=== PATIENT | male | born 1965 | race Caucasian/White ===

== ENCOUNTER 2024-10-28 18:26 | Inpatient (IN) | payer OTHER, SELFPAY ==
[2024-10-28] VITALS (26 sets, daily range): BP systolic 95–137; BP diastolic 58–95; PULSE 80; BMI 26.1; BMI 27.0
--- NOTE | 2024-10-28 14:29 | ED.GENMED ---
ED Provider Triage
<Bola Segovia PA-C - Last Filed: 10/28/24 14:31>
-
Patient seen by provider in Triage?: Seen in Triage
Attestation: A medical screening examination has been initiated by a qualified medical provider. Based on the assessment performed at this time, it has been determined that an emergent medical condition may exist and the patient has been informed
that further medical evaluation and possible additional diagnostic testing may be needed.
HPI: 59-year-old male presenting the emergency department for evaluation of inability to tolerate p.o. both solids and liquids, diarrhea and generally feeling unwell, generalized weakness. Patient is quite ill-appearing, having a difficult time
holding his head up, rapidly breathing and smells ketotic. Bedside glucose ordered with a reading of 'high'. Patient brought back immediately to the ER for further evaluation. Medical concern for DKA or other diabetic complication
GENERAL: Alert , unkempt, rapid breathing, difficult time speaking full sentences
EYE: No visual abnormalities.
NECK: Trachea midline
ENT: No visible abnormalities.
LUNGS: Tachypneic
NEUROLOGICAL: Alert and oriented
SKIN: Skin intact. No visible changes.
MUSCULOSKELETAL: Moving extremities normally
PSYCH: Normal and appropriate interaction.
This is a medical evaluation conducted in person to initiate diagnostic evaluation and provide initial therapeutics. Please see further documentation by the treating clinician.
History of Present Illness
<Bola Segovia PA-C - Last Filed: 10/28/24 14:31>
General
Chief Complaint: Blood Sugar Problem
Time Seen by Provider: 10/28/24 14:38
<Kiara Hoskins PA-C - Last Filed: 10/28/24 17:44>
General
Source: patient and family
Exam Limitations: none
History of Present Illness
History of Present Illness:
59yoM with a history of type 2 diabetes presenting with his son for evaluation of vomiting. Patient ran out of his medications about a month ago. He takes Januvia and glimepiride for type 2 diabetes. He has been having decreased appetite over the
past week and started vomiting 3 days ago. He is drinking fluids but is unable to keep any solids down. He also has had multiple falls over the past week. He started to become increasingly weak and fatigued since yesterday. Son states he refused
to come to the hospital until today. Patient is currently being worked up for MS by neurology in the outpatient setting. He has lost over 100 pounds in the past year unintentionally.
Past History
<Bola Segovia PA-C - Last Filed: 10/28/24 14:31>
Past History
ED Past Medical History: NIDDM
ED Past Surgical History: Other (Recent hernia surgery)
Social History
Tobacco: Non-smoker
Alcohol: Occasional
Drug: None
Personal:
Living: with family
Employment: Employed
Family History
Family History: Other (Noncontributory)
Phy Exam
<Kiara Hoskins PA-C - Last Filed: 10/28/24 17:44>
General Physical Exam
General Presentation: severe distress
General Skin: warm and dry
General Mental: alert
General Hydration: dry mucous membranes
ENT Exam
ENT Exam: normocephalic
Cardiovascular Exam
Cardiovascular Exam: tachycardia
Pulmonary Exam
Pulmonary Exam: lungs clear, no rales, no crackles, no rhonchi, no wheezing and other (Kussmaul respirations noted with RR in the 30-40 range. Lungs CTA and oxygen saturation 100%)
Gastrointestinal Exam
Gastrointestinal Exam: non tender, soft and non distended
Neurological Exam
Neurological Exam: alert and other (Someone confused during exam but awake and alert. RLE weakness noted )
Skin Exam
Skin Exam: normal color and warm/dry
Course
<Bola Segovia PA-C - Last Filed: 10/28/24 14:31>
Orders/Labs/Results
Orders:
Orders
10/28/24 14:45
Cardiac Monitoring- Treatment ONCE
0.9% Sodium Chloride 1000 ml [Nss] 2,000 ml IV BOLUS
10/28/24 14:46
Electrocardiogram (*1) Urgent
Reason for Study: Shortness of Breath
CT Cervical Spine W/o Iv Contr Urgent
Comment:
Reason For Exam: multiple falls
CT Head W/o Iv Contrast Urgent
Comment:
Reason For Exam: multiple falls
EKG- Treatment ONCE
10/28/24 14:50
B-Hydroxybutyrate Urgent
Complete Blood Count/With Diff Urgent
Comprehensive Metabolic Panel Urgent
Glycohemoglobin (HgbA1c) Urgent
Lactate Level [Lactic Acid] Urgent
Lipase Urgent
Magnesium Urgent
Troponin I Urgent
Venous Blood Gas Urgent
%Oxygen/Room Air: room air
10/28/24 14:58
Add On- LAB Urgent
Tests Added?: A1c
10/28/24 15:30
Normosol (Mult Electrolytes) [Normosol-R/Plasmalyte-A] 1,000 ml IV 1,000 mls/hr
10/28/24 15:41
Bedside Glucose- Treatment Q1H
IV Insert/Care/Rem.- Treatment PRN
10/28/24 15:43
Urinalysis Reflex To Culture Urgent
Date Specimen was Collected: 10/28/24
Time Specimen was Collected: 15:41
Urine Microscopic Reflex Cult Urgent
Blood Culture Q30M
RAYA Source: Blood/Venous
Specimen Description:
Blood Culture Q30M
RAYA Source: Blood/Venous
Specimen Description:
10/28/24 15:44
Reg Insulin 100 Units/100 ml [Novolin R Insulin Infusion] 100 units in 100 ml IV NOW
10/28/24 15:45
Basic Metabolic Panel Q2H
10/28/24 17:00
KCl 20 Meq/0.9%Sodchl 1000 ml [NSS with KCL 20 MEQ] 20 meq in 1,000 ml IV 250 mls/hr
10/28/24 17:45
Basic Metabolic Panel Q2H
10/28/24 19:45
Basic Metabolic Panel Q2H
Abnormal Lab Results
10/28/24 10/28/24 10/28/24
14:29 14:50 15:43
WBC 17.3 H 10^3/uL
(4.8-10.8)
MCH 31.5 H pg
(27.0-31.0)
Abs Immat Gran (auto) 0.3 H 10^3/uL
(0-0.05)
Absolute Neuts (auto) 14.2 H 10^3/uL
(1.4-6.5)
Absolute Monos (auto) 1.2 H 10^3/uL
(0.1-0.6)
Immature Gran % 1.4 H %
(0-0.5)
Neutrophils % 82.0 H %
(42.2-75.2)
Lymphocytes % 9.6 L %
(20.5-51.1)
VBG pH 6.98 L*
(7.32-7.43)
VBG pCO2 16 L mmHg
(35-48)
VBG pO2 61 H mmHg
(30-50)
VBG HCO3 3.8 L mmol/L
(22-27)
Sodium 132 L mmol/L
(135-145)
Chloride 94 L mmol/L
(98-107)
Carbon Dioxide < 5 L* mmol/L
(22-30)
BUN 41 H mg/dl
(9-20)
Creatinine 1.8 H mg/dL
(0.7-1.3)
Glucose 615 H* mg/dl
(70-99)
Lactic Acid 4.3 H* mmol/L
(0.7-2.0)
Urine Ketones 3+ A
(Negative)
Urine Bacteria (Reflex) Few A
(Negative)
Urine Glucose 4+ A
(Negative)
Urine Albumin (Reflex) 2+ A
(Neg - Trace)
B-Hydroxybutyrate 10.2 H mmol/L
(0.02-0.27)
POC Glucose 535 H* mg/dl
(70-99)
10/28/24
16:15
WBC
MCH
Abs Immat Gran (auto)
Absolute Neuts (auto)
Absolute Monos (auto)
Immature Gran %
Neutrophils %
Lymphocytes %
VBG pH
VBG pCO2
VBG pO2
VBG HCO3
Sodium
Chloride
Carbon Dioxide
BUN
Creatinine
Glucose
Lactic Acid
Urine Ketones
Urine Bacteria (Reflex)
Urine Glucose
Urine Albumin (Reflex)
B-Hydroxybutyrate
POC Glucose 579 H* mg/dl
(70-99)
10/28/24 14:50
Vital Signs
Initial and Last Documented VS:
Initial Vital Signs
Temp Pulse Resp BP Pulse Ox
97.8 F 112 18 103/58 97
10/28/24 14:31 10/28/24 14:31 10/28/24 14:31 10/28/24 14:31 10/28/24 14:31
Last Documented Vital Signs
Temp Pulse Resp BP Pulse Ox
97.8 F 103 30 129/76 99
10/28/24 14:31 10/28/24 16:45 10/28/24 16:45 10/28/24 16:45 10/28/24 16:45
Morganlt;Kiara Hoskins PA-C - Last Filed: 10/28/24 17:44>
Orders/Labs/Results
Orders:
Orders
10/28/24 14:45
Cardiac Monitoring- Treatment ONCE
0.9% Sodium Chloride 1000 ml [Nss] 2,000 ml IV BOLUS
10/28/24 14:46
Electrocardiogram (*1) Urgent
Reason for Study: Shortness of Breath
CT Cervical Spine W/o Iv Contr Urgent
Comment:
Reason For Exam: multiple falls
CT Head W/o Iv Contrast Urgent
Comment:
Reason For Exam: multiple falls
EKG- Treatment ONCE
10/28/24 14:50
B-Hydroxybutyrate Urgent
Complete Blood Count/With Diff Urgent
Comprehensive Metabolic Panel Urgent
Glycohemoglobin (HgbA1c) Urgent
Lactate Level [Lactic Acid] Urgent
Lipase Urgent
Magnesium Urgent
Troponin I Urgent
Venous Blood Gas Urgent
%Oxygen/Room Air: room air
10/28/24 14:58
Add On- LAB Urgent
Tests Added?: A1c
10/28/24 15:30
Normosol (Mult Electrolytes) [Normosol-R/Plasmalyte-A] 1,000 ml IV 1,000 mls/hr
10/28/24 15:41
Bedside Glucose- Treatment Q1H
IV Insert/Care/Rem.- Treatment PRN
10/28/24 15:43
Urinalysis Reflex To Culture Urgent
Date Specimen was Collected: 10/28/24
Time Specimen was Collected: 15:41
Urine Microscopic Reflex Cult Urgent
Blood Culture Q30M
RAYA Source: Blood/Venous
Specimen Description:
Blood Culture Q30M
RAYA Source: Blood/Venous
Specimen Description:
10/28/24 15:44
Reg Insulin 100 Units/100 ml [Novolin R Insulin Infusion] 100 units in 100 ml IV NOW
10/28/24 15:45
Basic Metabolic Panel Q2H
10/28/24 17:00
KCl 20 Meq/0.9%Sodchl 1000 ml [NSS with KCL 20 MEQ] 20 meq in 1,000 ml IV 250 mls/hr
10/28/24 17:45
Basic Metabolic Panel Q2H
10/28/24 19:45
Basic Metabolic Panel Q2H
Abnormal Lab Results
10/28/24 10/28/24 10/28/24
14: 14:50 15:43
WBC 17.3 H 10^3/uL
(4.8-10.8)
MCH 31.5 H pg
(27.0-31.0)
Abs Immat Gran (auto) 0.3 H 10^3/uL
(0-0.05)
Absolute Neuts (auto) 14.2 H 10^3/uL
(1.4-6.5)
Absolute Monos (auto) 1.2 H 10^3/uL
(0.1-0.6)
Immature Gran % 1.4 H %
(0-0.5)
Neutrophils % 82.0 H %
(42.2-75.2)
Lymphocytes % 9.6 L %
(20.5-51.1)
VBG pH 6.98 L*
(7.32-7.43)
VBG pCO2 16 L mmHg
(35-48)
VBG pO2 61 H mmHg
(30-50)
VBG HCO3 3.8 L mmol/L
(22-27)
Sodium 132 L mmol/L
(135-145)
Chloride 94 L mmol/L
(98-107)
Carbon Dioxide < 5 L* mmol/L
(22-30)
BUN 41 H mg/dl
(9-20)
Creatinine 1.8 H mg/dL
(0.7-1.3)
Glucose 615 H* mg/dl
(70-99)
Lactic Acid 4.3 H* mmol/L
(0.7-2.0)
Urine Ketones 3+ A
(Negative)
Urine Bacteria (Reflex) Few A
(Negative)
Urine Glucose 4+ A
(Negative)
Urine Albumin (Reflex) 2+ A
(Neg - Trace)
B-Hydroxybutyrate 10.2 H mmol/L
(0.02-0.27)
POC Glucose 535 H* mg/dl
(70-99)
10/28/24
16:15
WBC
MCH
Abs Immat Gran (auto)
Absolute Neuts (auto)
Absolute Monos (auto)
Immature Gran %
Neutrophils %
Lymphocytes %
VBG pH
VBG pCO2
VBG pO2
VBG HCO3
Sodium
Chloride
Carbon Dioxide
BUN
Creatinine
Glucose
Lactic Acid
Urine Ketones
Urine Bacteria (Reflex)
Urine Glucose
Urine Albumin (Reflex)
B-Hydroxybutyrate
POC Glucose 579 H* mg/dl
(70-99)
10/28/24 14:50
Vital Signs
Initial and Last Documented VS:
Initial Vital Signs
Temp Pulse Resp BP Pulse Ox
97.8 F 112 18 103/58 97
10/28/24 14:31 10/28/24 14:31 10/28/24 14:31 10/28/24 14:31 10/28/24 14:31
Last Documented Vital Signs
Temp Pulse Resp BP Pulse Ox
97.8 F 103 30 129/76 99
10/28/24 14:31 10/28/24 16:45 10/28/24 16:45 10/28/24 16:45 10/28/24 16:45
<Kiara Hoskins PA-C - Last Filed: 10/28/24 17:44>
MDM/Problems Addressed
Differential Diagnosis Includes:
59yoM here with decreased appetite x1 week and vomiting x3 days. Hx of T2DM. Ran out of medications 1 month ago. Fingerstick glucose 535 in triage. He is acutely ill on initial exam with Kussmaul respirations and dry mucous membranes. Differential
diagnosis includes but is not limited to: DKA, HHS, dehydration, ED
Initial ED plan: Check abdominal labs, VBG, beta hydroxybutyrate, lactate, troponin/EKG, UA, and CT head/cervical spine given multiple falls. 2L IV NS ordered.
<Kiara Hoskins PA-C - Last Filed: 10/28/24 17:44>
*EKG
Interpreted by ED Provider?: Yes
EKG Intrepretation Date: 10/28/24
Heart Rate: 110
Rate: tachycardiac
Rhythm: sinus
[place]: left axis deviation
QRS Pattern: normal QRS
Ischemia: other (nonspecific T wave flattening)
*Critical Care Note
Total Time (30-74mins, 75-104mins- exclusive of procedures): 45
<Kiara Hoskins PA-C - Last Filed: 10/28/24 17:44>
Update Note
Update Note:
Labs consistent with severe DKA. Venous pH 6.98, base deficit -26, and bicarb <5. Serum and urine ketones positive. WBC 17 and lactate 4.3. SIRS criteria likely 2/2 DKA/hypovolemia. He denies any fevers or infectious symptoms although blood cultures
added for completeness. Additional fluid bolus and insulin gtt ordered. Patient admitted for further management.
ED Attending Note
<Bola Segovia PA-C - Last Filed: 10/28/24 14:31>
-
Portions of this chart may have been created with voice recognition software.� Occasional wrong word or��sound alike� substitutions may have occurred due to the inherent limitations of voice recognition software.
Discharge Plan
Departure
Patient Disposition: Admit
Date of Disposition: 10/28/24
Time of Disposition: 16:13
Presentation/result/management discussed w/ accepting MD/DO: Hospitalist
Discharge Problem:
Diabetic ketoacidosis
Prescriptions:
No Action
Theragen Tablet
1 tab PO DAILY
glimepiride 2 mg Tablet
2 mg PO BID
Januvia 50 mg Tablet
100 mg PO DAILY
Patient Comments:
does not know dose
Medical Marijuana
2 gummy PO DAILYPRN PRN (Reason: shakes)
Referrals:
Edy Grimaldo DO [Family Provider] -
Interventions
Interventions:
*Risk Screen - Suicide Last Done: 10/28/24 14:31
*General Assessment Last Done: 10/28/24 14:31
*Neglect/Abuse Screening Last Done: 10/28/24 14:31
ED- Fall Risk Assessment Last Done: 10/28/24 15:07
*ED COVID-19 Vaccine History Last Done: 10/28/24 15:07
ED- Neurological Assessment Last Done: 10/28/24 15:07
Discharge Date and Time
Print Language: CITIZEN OF [place]
[2024-10-28 14:30] LABS: Glucose - Point of Care 535 mg/dl (70-99)
[2024-10-28] MEDS: NSS 2000 IV (14:51)
[2024-10-28 15:15] LABS: Venous Blood Gas B.E. -26.2 mmol/L (-4 to +4); Venous Blood Gas HCO3 3.8 mmol/L (22-27); Venous Blood Gas pCO2 16 mmHg (35-48); Venous Blood Gas pO2 61 mmHg (30-50)
[2024-10-28 15:16] LABS: % Basophils 0.2 % (0-2); % Immature Granulocytes 1.4 % (0-0.5); % Lymphocytes 9.6 % (20.5-51.1); % Monocytes 6.8 % (1.7-9.3); Absolute Immature Granulocytes 0.3 10^3/uL (0-0.05); Absolute Lymphocytes 1.7 10^3/uL (1.2-3.4); Absolute Monocytes 1.2 10^3/uL (0.1-0.6); Absolute Neutrophils 14.2 10^3/uL (1.4-6.5); Hematocrit 51.5 % (39.0-52.0); Hemoglobin 17.6 g/dL (13.0-18.0); Mean Corp Hgb Conc. 34.2 g/dL (33.0-37.0); Mean Corpuscular Hgb 31.5 pg (27.0-31.0); Mean Corpuscular Volume 92.3 fL (80.0-94.0); Mean Platelet Volume 9.8 fL (7.4-10.4); Nucleated Red Blood Cells % 0 % (-); Platelet Count 286 10^3/uL (130-400); Red Blood Cell Count 5.58 10^6/uL (4.70-6.10); Red Cell Dist. Width 12.7 % (11.5-14.5); White Blood Cell Count 17.3 10^3/uL (4.8-10.8)
[2024-10-28 15:18] LABS: Venous Blood Gas pH 6.98 (7.32-7.43)
[2024-10-28 15:37] LABS: ALT (SGPT) 18 U/L (0-50); AST (SGOT) 18 U/L (17-59); Albumin 4.8 g/dl (3.5-5.0); Alkaline Phosphatase 83 U/L (38-126); Blood Urea Nitrogen 41 mg/dl (9-20); Calcium 8.9 mg/dl (8.4-10.2); Carbon Dioxide < 5 mmol/L (22-30); Chloride 94 mmol/L (98-107); Estimated Creatinine Clearance 50 ml/min; Glucose 615 mg/dl (70-99); Lipase 186 U/L (23-300); Magnesium 2.1 mg/dl (1.6-2.3); Potassium 4.4 mmol/L (3.5-5.1); Sodium 132 mmol/L (135-145); Total Bilirubin 0.5 mg/dl (0.2-1.3); Total Protein 7.7 g/dl (6.3-8.2); eGFR 42.82
[2024-10-28 15:38] LABS: Lactic Acid 4.3 mmol/L (0.7-2.0)
[2024-10-28 15:41] LABS: Troponin I < 0.012 ng/ml
[2024-10-28] MEDS: NORMOSOL-R/PLASMALYTE-A 1000 IV (15:52)
[2024-10-28 16:17] LABS: Glucose - Point of Care 579 mg/dl (70-99)
[2024-10-28 16:20] LABS: Urine Albumin 2+ (Neg - Trace); Urine Bilirubin Negative (Negative); Urine Character Clear (Clear); Urine Color Yellow; Urine Glucose 4+ (Negative); Urine Leukocyte Negative (Negative); Urine Nitrite Negative (Negative); Urine Occult Blood Negative (Negative); Urine Specific Gravity 1.025 (<1.030); Urine Urobilinogen Negative (Neg - 1+)
[2024-10-28 16:26] LABS: Urine Ketone 3+ (Negative)
[2024-10-28 16:30] LABS: Urine Red Blood Cell 0-2 /HPF (0-2)
[2024-10-28 16:31] LABS: Urine Bacteria Few (Negative); Urine White Cell 0-2 /HPF (0-5)
[2024-10-28] MEDS: NOVOLIN R INSULIN INFUSION 100 IV (16:33)
[2024-10-28 17:34] LABS: B-Hydroxybutyrate 10.2 mmol/L (0.02-0.27)
[2024-10-28 17:38] LABS: Glucose - Point of Care 451 mg/dl (70-99)
[2024-10-28 18:23] LABS: Blood Urea Nitrogen 38 mg/dl (9-20); Calcium 7.9 mg/dl (8.4-10.2); Carbon Dioxide < 5 mmol/L (22-30); Chloride 102 mmol/L (98-107); Estimated Creatinine Clearance 75 ml/min; Glucose 417 mg/dl (70-99); Potassium 3.6 mmol/L (3.5-5.1); Sodium 135 mmol/L (135-145); eGFR > 60.00
--- NOTE | 2024-10-28 18:24 | HPS.HSE ---
Addendum entered and electronically signed by Mounika Rodriguez MD 10/28/24 19:49:
I personally performed a history and physical exam of the patient and discussed management with the resident. I reviewed the resident's note and agree with the documented findings and plan of care HPI/CC.
GENERAL: well developed, well nourished, male appears ill
HEENT: NC/AT--dry mucous membranes with blood on teeth
HEART: regular rate and rhythm, +S1, +S2, tachycardic
LUNGS : clear to auscultation bilaterally, tachypneic
ABDOM: soft, nontender, nondistended, + bowel sounds
EXT: no cyanosis, clubbing, or edema
NEUROLOGIC: grossly intact
DKA--most likely--doubt sepsis with hyperglycemia as alternate due to no sings of infection--WBC likely reactive--weakness, decreased appetite, vomiting all related to DKA--noncompliant with meds--elevated lactic acid--ADMIT to ICU--IVF, insulin
drip, Q1H accuchecks and Q4H BMP--adjust fluids as necessary--consult research and development tester--replete K as necessary--NPO with ice chips--HGB A1C pending--B-hydroxybutyrate = 10.2--pH 6.9--will give 1 amp bicarb
ED--creat 1.8--very dehydrated on exam--cont IVF and follow creat
pseudohyponatremia--corrected sodium 140
weight loss--> 100 lbs per pt--could be due to uncontrolled DM vs other (occult malignancy)--fletcher scan when stable
DVT proph--Heparin Subq
Code status--Full code
Total Critical Care Time 37 minutes. I was immediately available to the patient and staff. I personally examined, reviewed labs, diagnostic images/reports, interpretations, treatment plans, discussed patient care with other providers and family
or caregivers (if patient is unable to make decisions), entered orders as appropriate and documented the medical record.
Original Note:
Family Physician
-
Family Physician: Edy Grimaldo
Chief Complaint
-
Decreased appetite, vomiting, weakness
History of Present Illness
Patient is a 59-year-old male with type 2 diabetes (diagnosed over 10 years ago) presenting to the ED with decreased appetite, vomiting and weakness. Patient states has been noncompliant with diabetes medications since March last year (Januvia and
glimepiride) due to cost. patient has been feeling more weak for the past week and started vomiting three days ago. Was not tolerating solids and recently liquids. Reports has had recent falls and weakness and is currently being evaluated outpatient
by his neurologist for MS. After a fall this week, he hit his head against the toilet. Denies headache and neck pain. Also reports intermittent diarrhea and unintentional weight loss of approximately 100 pounds within the past year. Patient denies
chest pain, shortness of breath, abdominal pain, urinary symptoms, fever. Patient is a non-smoker, does not drink alcohol and is taking medical marijuana for hand tremors. Denies allergy to any medication.
Medical History
Past Medical History
Past Medical History: Reports CAD and NIDDM
Past Surgical History: Reports Other
Social History
Tobacco: Non-smoker
Alcohol: None
Drug: Marijuana (Medical marijuana)
Living: With Family
Employment: Employed
Family History
Family History: Other
Allergies / Home Medications
Allergies reflects when Allergies were last updated in [employer].
Home Medications with original date entered in [employer]
Allergy/Medication List:
Allergies
Allergy/AdvReac Type Severity Reaction Status Date / Time
No Known Allergies Allergy Verified 10/28/24 15:42
Home Medications
glimepiride 2 mg tablet 2 mg PO BID 02/26/12
sitagliptin phosphate 50 mg tablet (Januvia) 100 mg PO DAILY 02/26/12
therapeutic multivitamin 1 tab PO DAILY 02/26/12
Medical Marijuana 2 gummy PO DAILYPRN PRN shakes 10/28/24
Review of Systems
-
History Source: Patient and Family
Constitutional: Reports Weight Loss and Fatigue
EENT: Reports No Symptoms
Respiratory: Reports Other (Rapid breaths)
Cardiac: Reports No Symptoms
Abdomen/GI: Reports No Symptoms
: Reports No Symptoms
Musculoskeletal: Reports No Symptoms
Skin: Reports No Symptoms
Neurological: Reports Dizzy and Weakness
Endocrine: Reports No Symptoms
Hematologic/Lymphatic: Reports No Symptoms
Physical Exam
Vital Signs
Vital Signs
Temp Pulse Resp BP Pulse Ox
97.8 F 107 32 131/91 100
10/28/24 14:31 10/28/24 17:30 10/28/24 17:45 10/28/24 17:30 10/28/24 17:30
Physical Exam
General: Well Developed and Well Nourished
HEENT: NormoCephalic, Neck Nontender and Other (Poor dentition)
Respiratory: Clear and Other (Kussmaul breathing)
Cardiac: S1/S2, Regular Rhythm and Tachycardia
GI: Soft, Non Distended, Normal Bowel Sounds and Tender (Mild epigastric tenderness)
Genito-urinary: No costovertebral tender
Musculoskeletal: No Clubbing, No Cyanosis and No Edema
Skin: Warm
Neuro: Awake, Alert and Oriented
Hematologic/Lymphatic: No Lymphadenopathy
Psych: Agitated
Laboratory Results
-
10/28/24 14:50
Laboratory Results
Lactic Acid 4.3 mmol/L (0.7-2.0) H* 10/28/24 14:50
Total Bilirubin 0.5 mg/dl (0.2-1.3) 10/28/24 14:50
AST 18 U/L (17-59) 10/28/24 14:50
ALT 18 U/L (0-50) 10/28/24 14:50
Alkaline Phosphatase 83 U/L (38-126) 10/28/24 14:50
Troponin I < 0.012 ng/ml 10/28/24 14:50
Lipase 186 U/L (23-300) 10/28/24 14:50
Impression/Plan
-
59-year-old male with type 2 diabetes and medical noncompliance presenting with vomiting, weakness and decreased appetite:
# weakness, decreased appetite, vomiting
- Noncompliant to diabetes meds, likely DKA, less likely starvation ketoacidosis
- BG 615 on arrival
- Kussmaul breathing, breath smells ketotic
- U/A ketones 3+, glucose 4+
- K 4.4
- VBG: ph= 6.98, bicarb 3.8
- Lactic acid=4.3
- No source of infection on history and exam, will obtain CXR, U/A, BCx
- White count 17.3
- Patient meets criteria for SIRS (tachycardia, tachypnea, white count), but is not septic (DKA can mimic sepsis)
- Cr 1.8
- Na 132, corrected NA 140
- Trop neg
- EKG sinus tachycardia
- Started IV fluids, KCl, IV insulin, bicarb
- Will recheck glucose every hour
- Repeat BMP Q4hr
- HbA1c pending
- B-hydroxybutyrate pending
# weight loss
- per patient, unintentional
- will evaluate further after patient is more stable
DVT prophylaaxis
Heparin Subq
Code status
Full code
[2024-10-28] MEDS: NSS with KCL 20 MEQ 1000 IV ×2 (18:27→20:18)
[2024-10-28 18:37] LABS: Glucose - Point of Care 378 mg/dl (70-99)
[2024-10-28 20:06] LABS: Glucose - Point of Care 277 mg/dl (70-99)
[2024-10-28] MEDS: SODIUM BICARBONATE 510 MEQ IV ×2 (20:17)
[2024-10-28 20:34] LABS: Blood Urea Nitrogen 40 mg/dl (9-20); Calcium 8.5 mg/dl (8.4-10.2); Carbon Dioxide < 5 mmol/L (22-30); Chloride 106 mmol/L (98-107); Estimated Creatinine Clearance 82 ml/min; Glucose 260 mg/dl (70-99); Potassium 3.3 mmol/L (3.5-5.1); Sodium 134 mmol/L (135-145); eGFR > 60.00
[2024-10-28 21:23] LABS: Glucose - Point of Care 172 mg/dl (70-99)
[2024-10-28] MEDS: D5/0.45%NSS with KCL 20 MEQ 1000 IV (22:08)
[2024-10-28] MEDS: KCL 270 MEQ IV (22:09)
[2024-10-28 22:20] LABS: Glucose - Point of Care 133 mg/dl (70-99)
[2024-10-28 23:21] LABS: Glucose - Point of Care 221 mg/dl (70-99)
[2024-10-29] VITALS (34 sets, daily range): BP systolic 111–156; BP diastolic 77–108; PULSE 2–106; BMI 27.0; BMI 27.2
[2024-10-29 00:13] LABS: Glucose - Point of Care 178 mg/dl (70-99)
[2024-10-29 00:48] LABS: Blood Urea Nitrogen 37 mg/dl (9-20); Calcium 8.4 mg/dl (8.4-10.2); Carbon Dioxide 12 mmol/L (22-30); Chloride 108 mmol/L (98-107); Estimated Creatinine Clearance 112 ml/min; Glucose 184 mg/dl (70-99); Potassium 3.9 mmol/L (3.5-5.1); Sodium 137 mmol/L (135-145); eGFR > 60.00
[2024-10-29] MEDS: HEPARIN 5000 UNITS SC ×2 (01:00→07:50)
[2024-10-29 01:34] LABS: Glucose - Point of Care 180 mg/dl (70-99)
[2024-10-29 02:38] LABS: Glucose - Point of Care 290 mg/dl (70-99)
[2024-10-29 03:08] LABS: Glucose - Point of Care 205 mg/dl (70-99)
[2024-10-29] MEDS: D5/0.45%NSS with KCL 20 MEQ 1000 IV ×2 (04:16→11:06)
[2024-10-29 04:28] LABS: Glucose - Point of Care 233 mg/dl (70-99)
--- NOTE | 2024-10-29 04:45 | PTCARENOTE ---
10/28/24 - received pt from ER with DKA on insulin gtt. patient confused and disoriented with son at bedside to answer questions. per son, patient has been falling multiple times a week, currently seeing a neurologist for possible MS? insulin gtt
running and titrated per protocol, IVF and K+ running as well. pt extremely upset that he is NPO and is refusing swabs at this time.
--- NOTE | 2024-10-29 04:47 | PTCARENOTE ---
10/29/24 - patient states he uses cpap at home, son will bring in tomorrow, however resp will hook him up to our machine at this time. currently is 97% on RA. patient able to ask for urinal, does not want anyone in room to help, however patient
spills urinal requiring multiple bed changes. insulin gtt continues along with IVF - no c/o pain or discomfort, patient still verbalizing anger towards being NPO and not being able to drink what he wants, patient is still to confused to understand
why he cant at this time. continue to reassure and reorient patient.
[2024-10-29 04:50] LABS: INR 1.09; PT 14.6 Sec (11.4-14.6)
[2024-10-29 04:51] LABS: APTT 24.6 Sec (23.4-35.0)
[2024-10-29 05:02] LABS: Blood Urea Nitrogen 35 mg/dl (9-20); Calcium 7.9 mg/dl (8.4-10.2); Carbon Dioxide 15 mmol/L (22-30); Chloride 108 mmol/L (98-107); Estimated Creatinine Clearance > 125 ml/min; Glucose 219 mg/dl (70-99); Phosphorus 1.2 mg/dl (2.5-4.5); Potassium 4.1 mmol/L (3.5-5.1); Sodium 137 mmol/L (135-145); eGFR > 60.00
[2024-10-29 05:30] LABS: Glucose - Point of Care 200 mg/dl (70-99)
[2024-10-29 06:17] LABS: Glucose - Point of Care 273 mg/dl (70-99)
[2024-10-29] MEDS: POTASSIUM PHOSPHATE 259.0909 MEQ IV (06:25)
[2024-10-29 06:55] LABS: % Basophils 0.1 % (0-2); % Immature Granulocytes 0.4 % (0-0.5); % Lymphocytes 14.5 % (20.5-51.1); % Monocytes 8.9 % (1.7-9.3); % Neutrophils 76.1 % (42.2-75.2); Absolute Lymphocytes 1.6 10^3/uL (1.2-3.4); Absolute Neutrophils 8.5 10^3/uL (1.4-6.5); Hematocrit 38.6 % (39.0-52.0); Hemoglobin 14.1 g/dL (13.0-18.0); Mean Corp Hgb Conc. 36.5 g/dL (33.0-37.0); Mean Corpuscular Volume 87.7 fL (80.0-94.0); Mean Platelet Volume 9.4 fL (7.4-10.4); Nucleated Red Blood Cells % 0 % (-); Platelet Count 208 10^3/uL (130-400); Red Cell Dist. Width 12.5 % (11.5-14.5); White Blood Cell Count 11.2 10^3/uL (4.8-10.8)
[2024-10-29 07:15] LABS: Glucose - Point of Care 151 mg/dl (70-99)
--- NOTE | 2024-10-29 07:28 | W.PN.HOSP.TC ---
Addendum entered and electronically signed by Mounika Rodriguez MD 10/29/24 15:54:
I saw and evaluated the patient independently. I reviewed the resident�s note and agree with findings and plan as documented by Dr. Freed.
GENERAL: well developed, well nourished, male appears improved
HEENT: NC/AT--dry mucous membranes improved
HEART: regular rate and rhythm, +S1, +S2, tachycardic
LUNGS : clear to auscultation bilaterally, tachypneic
ABDOM: soft, nontender, nondistended, + bowel sounds
EXT: no cyanosis, clubbing, or edema
NEUROLOGIC: grossly intact
DKA--most likely---WBC likely reactive but pt now with positive blood culture for gm + cocci--started vanco/rocephin--weakness, decreased appetite, vomiting all related to DKA--noncompliant with meds--elevated lactic acid----cont IVF, insulin drip
to SC insulin, Q1H accuchecks and Q4H BMP until AGAP closed--adjust fluids as necessary--apprec dispensary clerk--replete K as necessary--NPO with ice chips, advance diet --HGB A1C 14.4--B-hydroxybutyrate 10.2--pH 6.9--s/p 1 amp bicarb
ED--creat 1.8--very dehydrated on exam--resolved with IVF
hypophosphatemia--replete
pseudohyponatremia--on admission--now resolved
weight loss--> 100 lbs per pt--could be due to uncontrolled DM vs other (occult malignancy)--fletcher scan when stable
DVT proph--Heparin Subq
Code status--Full code
ok for transfer to tele
Original Note:
Today's Communication/Plan
-
Continue fluids
Transition to insulin subq later today
Start antibiotics
Switch heparin to Lovenox
Replete Ca and Ph
Assessment / Plan
Assessment / Plan
59-year-old male with type 2 diabetes and medical noncompliance presenting with vomiting, weakness and decreased appetite:
# weakness, decreased appetite, vomiting
- Noncompliant to diabetes meds, likely DKA, less likely starvation ketoacidosis vs sepsis
- BG 615 on arrival
- U/A ketones 3+, glucose 4+
- VBG: ph= 6.98, bicarb 3.8 --> 15
- Lactic acid=4.3, repeat pending
- No source of infection on history and exam, CXR neg, U/A neg for infection, BCx preliminary positive for gram + cocci, will start antibiotics
- White count downtrending, 11.2 today
- Patient meets criteria for SIRS (tachycardia, tachypnea, white count)
- Cr 1.8 --> 0.6, will switch heparin to lovenox
- Na 137
- Trop neg
- EKG sinus tachycardia
- Continue IV fluids, KCl, IV insulin, bicarb
- Anion gap <12, will consult diabetes team for transition to insulin subq after closed gap x2
- Will recheck glucose every hour
- Repeat BMP Q4hr
- HbA1c pending
- B-hydroxybutyrate 10.6 yesterday
- PH and Ca low, replete as needed
# weight loss
- per patient, unintentional
- will evaluate further after patient is more stable and DKA has resolved
# Head trauma
- CT head and neck negative for any acute abnormalities
DVT prophylaaxis
Heparin Subq
Code status
Full code
Anticipated Discharge: 24 - 48 hours
Subjective/Interval History
-
Date of Service: October 29, 2024
Objective Data
-
Labs:
Laboratory Results
10/28/24 10/28/24 10/28/24
17:45 19:45 19:58
WBC
Hgb
Hct
Plt Count
PT
INR
APTT
Sodium Cancelled Cancelled 134 L
Potassium Cancelled Cancelled 3.3 L
Chloride Cancelled Cancelled 106
Carbon Dioxide Cancelled Cancelled < 5 L*
BUN Cancelled Cancelled 40 H
Creatinine Cancelled Cancelled 1.1
Glucose Cancelled Cancelled 260 H
Calcium Cancelled Cancelled 8.5
10/29/24 10/29/24 10/29/24
00:19 04:19 08:00
WBC 11.2 H
Hgb 14.1
Hct 38.6 L
Plt Count 208 D
PT 14.6
INR 1.09
APTT 24.6
Sodium 137 137 Pending
Potassium 3.9 4.1 Pending
Chloride 108 H 108 H Pending
Carbon Dioxide 12 L* 15 L Pending
BUN 37 H 35 H Pending
Creatinine 0.8 0.6 L Pending
Glucose 184 H 219 H Pending
Calcium 8.4 7.9 L Pending
10/29/24 10/29/24
12:00 16:00
WBC
Hgb
Hct
Plt Count
PT
INR
APTT
Sodium Pending Pending
Potassium Pending Pending
Chloride Pending Pending
Carbon Dioxide Pending Pending
BUN Pending Pending
Creatinine Pending Pending
Glucose Pending Pending
Calcium Pending Pending
Vital Signs:
Vital Signs
Temp Pulse Resp BP Pulse Ox
98.1 F 104 11 129/83 97
10/29/24 04:30 10/29/24 04:45 10/29/24 04:45 10/29/24 04:30 10/29/24 04:45
I&O
10/28/24 10/29/24 10/30/24
06:59 06:59 06:59
Intake Total 1929 / 1929
Output Total 1800 / 1799
Balance 130 / 130
Review of Systems
-
History Source: Patient
Constitutional: Reports No Symptoms
EENT: Reports No Symptoms Reported
Respiratory: Reports No Symptoms
Cardiac: Reports No Symptoms
Abdomen/GI: Reports No Symptoms
Breast: Reports No Symptoms
Genitourinary: Reports No Symptoms
Musculoskeletal: Reports No Symptoms
Skin: Reports No Symptoms
Neuro: Reports No Symptoms
Endocrine: Reports Excessive Thirst
Hematologic / Lymphatic: Reports No Symptoms
Allergy / Immunology: Reports No Symptoms
Physical Exam
-
General: Well Developed, Well Nourished, No Apparent Distress and Comfortable
HEENT: Normocephalic
Respiratory: Clear to Auscultation
Cardiac: Regular Rhythm and S1/S2
GI: Soft, Nontender, Nondistended and Normal Bowel Sounds
Genito-urinary: No Costovertebral Tender
Musculoskeletal: No Clubbing, No Cyanosis and No Edema
Skin: Warm
Neuro: Awake, Alert and Oriented
Hematologic / Lymphatic: No Lymphadenopathy
Psych: Calm
--- NOTE | 2024-10-29 08:10 | CON.INTV ---
Addendum entered and electronically signed by Lucila Dai MD 10/29/24 16:29:
Patient transferred out of ICU. We will sign off. Please call with questions
Addendum entered and electronically signed by Lucila Dai MD 10/29/24 16:27:
Patient seen and examined independently by myself. Resident note reviewed below. Agree with assessment and plan
History obtained from the patient and also from the son at the bedside. Patient is a 58-year-old male with history of diabetes, who lives with family. According to son at the bedside, patient stopped his medications sometime in 24. He states he
has been going through a lot. Records also suggest he is being worked up for neuromuscular disease. He sees neurology and is being considered for possible multiple sclerosis?. Patient also has a history of multiple falls, presyncopal symptoms,
persistent fatigue. Patient presents to [facility] with nausea, emesis, decreased appetite. He was found to be in DKA. Of note hemoglobin A1c 14.4, positive blood cultures noted this morning. We are asked to help from a critical care
standpoint
Past medical history, social history, family history as below. Review of systems also reviewed with son. Patient with multiple falls. Patient also apparently has lost 100 pounds over the past few years.
Physical exam
Comfortable appearing but mildly lethargic. He is answering questions appropriately. He is alert and oriented otherwise.
Chest exam is clear. Cardiac exam regular rhythm no murmurs
Abdominal exam soft nontender nondistended no rebound or guarding
Extremities no clubbing, cyanosis or edema
Data reviewed hemoglobin 17.6, serum bicarbonate improved to 15. Initial anion gap 34, now improved to 10. Lactate 4.3, phosphorus 1.2. EKG with sinus tachycardia. Head CT and cervical CT negative, apical lungs clear. Blood culture positive
gram-positive cocci in clusters
A/P
Moving forward
Continue with management of DKA. IV fluids, follow electrolytes, cirrhosis
Anion gap has improved throughout the day
Consider transition to insulin regimen, initiate oral intake
Positive blood culture, gram-positive cocci in clusters
Start ceftriaxone, vancomycin. Vancomycin to be dosed by pharmacy
Neurological
Consider outpatient noted with persistent fatigue
Neurological exam is nonfocal but given positive blood cultures, unclear whether patient may require additional workup, TTE, imaging for abscess. No skin lesions or decubitus ulcers noted
Will need to be followed
Reviewed with critical care nursing, respiratory care, pharmacy. Reviewed with primary service
TCCT 31 min
Original Note:
Consultation
Consultation Request
Date/Time Consultation Requested: 10/28/2024,19:41
Date/Time Consultation Performed: 10/29/2024,07:45
Requesting Provider: Su Griffin
Performing Provider: Lucila Dai
Reason for Consultation: Diabetic ketoacidosis
Medical History
-
Chief Complaint: Weakness, nausea, decreased appetite and high blood sugar levels
History of Present Illness:
Patient is a 59-year-old male, with past medical history of diabetes mellitus type 2, coronary artery disease, and obstructive sleep apnea. According to the patient and his son present on bedside, he had been noncompliant to his medication and had
not been checking his blood sugar levels since March 2024. In addition he was having difficulty in swallowing solids and was eating more of a semisolid and liquid diet. He was also having recurrent falls, most recent fall was 2 days ago in the
bathroom where he hit his head to the toilet, but he denied any head or neck pain, blood through ear nose or throat, any vomiting or dizziness. He was being evaluated for MS on outpatient basis by neurologist.
Yesterday, he presented to the emergency, feeling very tired, lethargic, had some nausea and was unable to keep anything down without feeling nauseous. Bedside examination showed a very ill-appearing male, with rapid shallow breathing, very
lethargic, complaining of generalized body aches, blood glucose level was high, and his lab work showed beta-hydroxybutyrate level of 10.2, bicarb of less than 5, anion gap of 34, patient received 2 L of fluid in ER and insulin pump was started
along with potassium supplementation as his potassium level was 3.6.
On evaluation this morning on 10/29/2024, patient still feels very weak, has bodyaches, appears very lethargic and complains of bodyaches. His blood glucose has been ranging between 150-250, his anion gap is 14 and bicarb level is 15. Patient is
on dextrose 5/0.45 normal saline/20 mEq KCl infusion along with insulin pump at 2 units/h.
Patient's numbers look better on labs, clinically still appears critical.
Past Medical History
Past Medical History: CAD, NIDDM and Other (Obstructive sleep apnea)
Past Surgical History: Other
Social History
Tobacco: Non-smoker
Alcohol: None
Drug: Marijuana
Living: With Family
Employment: Employed
Family History
Family History: Reviewed & Not Pertinent
Allergies / Home Medications
Allergies
Allergy/AdvReac Type Severity Reaction Status Date / Time
No Known Allergies Allergy Verified 10/28/24 15:42
Home Medications
�Medication �Instructions �Recorded �Confirmed �Last Taken �Type
glimepiride 2 mg tablet 2 mg PO BID 02/26/12 10/28/24 02/26/12 08:00 History
sitagliptin phosphate 50 mg tablet 100 mg PO DAILY 02/26/12 10/28/24 02/26/12 History
(Januvia)
therapeutic multivitamin 1 tab PO DAILY 02/26/12 10/28/24 02/26/12 History
Medical Marijuana 2 gummy PO DAILYPRN PRN shakes 10/28/24 10/28/24 4 Days Ago History
~10/24/24
Review of Systems
-
Constitutional: Weight Loss (100 pound weight loss, unintentional over the last 6 months) and Fatigue
EENT: No Symptoms
Cardiac: No Symptoms
Abdomen/GI: Abdominal Pain and Nausea
: No Symptoms
Musculoskeletal: Muscle Pain
Skin: No Symptoms
Endocrine: No Symptoms
Hematologic/Lymphatic: No Symptoms
Vitals / Labs / Diagnostic Testing
Vital Signs
Temp Pulse Resp BP Pulse Ox
98.1 F 101 16 131/84 97
10/29/24 04:30 10/29/24 08:00 10/29/24 08:00 10/29/24 08:00 10/29/24 08:00
Lab Data
10/29/24 04:19
Laboratory Results
10/29/24
04:19
PT 14.6
INR 1.09
APTT 24.6
Diagnostic Testing:
Physical Exam
-
HEENT: Normocephalic, Anicteric and Moist Mucous Membranes
Cardiovascular: S1/S2, Regular Rhythm and Other (Tachycardia)
Respiratory: Clear and Non-Labored Respirations
GI: Soft, Non Distended and Tender (Mildly tender in epigastric region)
Neurology: Awake, Oriented and Other (Complains of bodyaches, unable to assess power)
Skin: Warm, Dry and Good Color
General: Other (Appears chronically ill, lethargic and tired)
Assessment
-
Impression
Mr. Conley, 59-year-old male, known diabetic for last 10 years, noncompliant to medication(glimepiride, Januvia) since March 2024, diarrhea for last 2 days, unable to keep anything down from last 2 days, gram-positive cocci in clusters on blood
culture, presented with high blood glucose of greater than 600, increased anion gap metabolic acidosis, positive ketones, admitted with DKA to ICU.
Of note, patient has history of recurrent falls, last fall was 2 days ago where he hit his head, no signs of head injury, CT head normal on 10/28/2024
Currently out of DKA, anion gap closed, plan to transition to subcutaneous insulin in p.m, plan to switch to low-carb diet in p.m.
Assessment
# DKA secondary to noncompliance to medication/infection
# ED secondary to poor perfusion
#Pseudohyponatremia
# Leukocytosis
# JAS
# Unintentional weight loss
Plan
# DKA secondary to noncompliance to medication/infection
Patient presented with DKA, blood glucose greater than 600, positive ketones, anion gap of 34
Currently anion gap of 10, plan to follow-up on next BMP-if anion gap remains closed-transition to subcutaneous insulin
Diabetic nurse practitioner consult appreciated-plan to start on NPH-diet to be resumed in p.m.
Continue to monitor blood sugar
Continue to monitor BMP
Patient's preliminary that culture came back positive for gram-positive cocci in clusters, antibiotics added empirically
TLC trending down-continue to monitor
Follow blood culture for final report
# ED secondary to poor perfusion
Patient serum creatinine on admission was 1.8, BUN/creatinine ratio suggestive of ED secondary to poor perfusion
Serum creatinine 0.6 today-ED resolved
Continue to monitor
Can switch to enoxaparin for DVT prophylaxis
#Pseudohyponatremia
Secondary to hyperglycemia
137 today-resolved
Continue to monitor
# Leukocytosis
Patient presented with increased WBC count of 17.3-reactive versus infection
Patient did complain of diarrhea initially-no episodes since yesterday
Blood cultures�positive for gram-positive cocci in clusters-final report pending
Empiric antibiotics started-continue to trend WBC, temperature, follow final blood culture report
# JAS
Patient is on CPAP at home, with pressure of 6
Continue CPAP with home device and settings
# Unintentional weight loss
Unclear, could be secondary to uncontrolled blood sugar or some other underlying pathology
Follow-up on outpatient basis with primary care physician and evaluation accordingly
CODE STATUS# full code
DVT prophylaxis# enoxaparin
Keep MAP greater than 65
Keep potassium greater than 4 and magnesium greater than 2
Keep oxygen saturation greater than 90-94
Low-carb diet
[2024-10-29 08:11] LABS: Glucose - Point of Care 164 mg/dl (70-99)
[2024-10-29 08:58] LABS: Blood Urea Nitrogen 30 mg/dl (9-20); Calcium 7.9 mg/dl (8.4-10.2); Carbon Dioxide 18 mmol/L (22-30); Chloride 109 mmol/L (98-107); Estimated Creatinine Clearance > 125 ml/min; Glucose 178 mg/dl (70-99); Potassium 3.8 mmol/L (3.5-5.1); Sodium 137 mmol/L (135-145); eGFR > 60.00
--- NOTE | 2024-10-29 09:00 | PTCARENOTE ---
Rec'd care of patient at 0700. Patient alert. Oriented to self and place. Reoriented to time. Forgetful at times. ST on tele monitor. Trace edema in b/l LE. Palpable pulses. Lung sounds cta on RA. +BS. No BM. C/o intermittent nausea. Tolerating ice
chips. Voiding via urinal. DKA protocol continued. Call perez within reach. Bed alarm on and safe environment maintained.
[2024-10-29 09:21] LABS: Glucose - Point of Care 207 mg/dl (70-99)
[2024-10-29 10:17] LABS: Glucose - Point of Care 193 mg/dl (70-99)
--- NOTE | 2024-10-29 10:27 | PTCARENOTE ---
life educator at bedside. Next BMP scheduled at 1200. If gap closed, plan to transition patient off insulin drip. VSS. Subassembler and Resident notified of positive blood cultures. Order for antibiotics to be placed.
[2024-10-29 11:13] LABS: Glucose - Point of Care 174 mg/dl (70-99)
[2024-10-29 11:44] LABS: Glycohemoglobin (HgbA1c) 14.4 % (4.0-5.6)
[2024-10-29 12:09] LABS: Glucose - Point of Care 203 mg/dl (70-99)
[2024-10-29 12:31] LABS: Lactic Acid 0.8 mmol/L (0.7-2.0)
--- NOTE | 2024-10-29 12:33 | PTCARENOTE ---
Minor changes in assessment. Patient drowsy. Pulse ox dropping while asleep. Order to use home cpap obtained. Patient resting comfortably on cpap. No other changes. Repeat labs sent. DKA protocol continued.
[2024-10-29] MEDS: NOVOLIN R INSULIN INFUSION 100 IV (12:38)
[2024-10-29] MEDS: VANCOCIN 540 MG IV (12:57)
[2024-10-29 13:11] LABS: Glucose - Point of Care 203 mg/dl (70-99)
[2024-10-29 13:31] LABS: Blood Urea Nitrogen 28 mg/dl (9-20); Calcium 8.3 mg/dl (8.4-10.2); Carbon Dioxide 15 mmol/L (22-30); Chloride 109 mmol/L (98-107); Estimated Creatinine Clearance > 125 ml/min; Glucose 214 mg/dl (70-99); Potassium 3.8 mmol/L (3.5-5.1); Sodium 136 mmol/L (135-145); eGFR > 60.00
--- NOTE | 2024-10-29 13:49 | PN.DE.MGMTRT ---
Insulin Management
- -
10/29/2024 Diabetes management Consult
Patient admitted 10/28 with c/o vomiting, unable to keep liquids or solid food down. Found to be in DKA, GAP 38. PMH HCL, HTN, diabetes, CAD. A1C 14.4%, cr .6, eGFR > 60.
Patient is awake alert and oriented, able to discuss diabetes care. Son who lives with patient is at bedside. Patient states he stopped taking his diabetes medication (glimepiride 2 mg BID, Januvia 100 mg daily)6 to 8 months ago. He states he
broke his meter, will provide new meter.
Patient currently on DKA protocol, GAP 10 @ 8am and now 12. Will transition to subcutaneous insulin. NPH 10 units now drip off in 1.5 hours. To start 70/30 insulin with dinner 60 units BID with low corrective insulin.
Demonstrated use of insulin pen to patient and son. Patient not feeling great but son did return demonstration without difficulty. I provided insulin pen instruction sheet with each step for prep and injection technique for reference.
Spoke with patient nurse, she will reinforce self injection when patient begins 70/30 or corrective insulin.
Will follow
Diabetes History
- -
Type of Diabetes: 2 requiring insulin
Pre-Admission Diabetes Regimen
10/28/24 10/28/24 10/28/24
14:50 17:45 17:49
Creatinine 1.8 H Cancelled 1.2
10/28/24 10/28/24 10/29/24
19:45 19:58 00:19
Creatinine Cancelled 1.1 0.8
10/29/24 10/29/24 10/29/24
04:19 07:59 11:55
Creatinine 0.6 L 0.6 L 0.6 L
Lab Results
Hemoglobin A1c 14.4 % (4.0-5.6) H 10/28/24 14:50
Insulin Pump Settings
IP Diabetes Regimen
10/28/24 10/28/24 10/28/24
14:29 14:50 16:15
Glucose 615 H*
POC Glucose 535 H* 579 H*
10/28/24 10/28/24 10/28/24
17:37 17:45 17:49
Glucose Cancelled 417 H
POC Glucose 451 H*
10/28/24 10/28/24 10/28/24
18:36 19:45 19:53
Glucose Cancelled
POC Glucose 378 H 277 H
10/28/24 10/28/24 10/28/24
19:58 21:06 22:00
Glucose 260 H
POC Glucose 172 H 133 H
10/28/24 10/28/24 10/29/24
23:05 23:57 00:19
Glucose 184 H
POC Glucose 221 H 178 H
10/29/24 10/29/24 10/29/24
01:12 02:16 02:57
Glucose
POC Glucose 180 H 290 H 205 H
10/29/24 10/29/24 10/29/24
04:06 04:19 05:09
Glucose 219 H
POC Glucose 233 H 200 H
10/29/24 10/29/24 10/29/24
05:58 07:03 07:57
Glucose
POC Glucose 273 H 151 H 164 H
10/29/24 10/29/24 10/29/24
07:59 09:10 10:04
Glucose 178 H
POC Glucose 207 H 193 H
10/29/24 10/29/24 10/29/24
11:02 11:54 11:55
Glucose 214 H
POC Glucose 174 H 203 H
10/29/24
13:00
Glucose
POC Glucose 203 H
Meal type: Breakfast
Patient Education
--- NOTE | 2024-10-29 13:54 | PHA.VAN.IN ---
Assessment
- Assessment
Renal Function: Unknown baseline
Maximum Temperature: 98.3
Minimum Temperature: 97.5
Concomitant Antimicrobials: ceftriaxone
AUC Dosing Plan
- Dosing Variables
Dosing Weight (kg): 92.8
Dosing CrCl (ml/min): 100-125
Vd coefficient (L/kg): 0.7
- Empiric Dosing
Initial / Loading Dose: vancomycin 2000 mg x 1
Maintenance Regimen: vancomycin 1500 mg q12h
Estimated AUC (mcg*h/mL): 462-563
Estimated Peak (mcg*h/mL): 31.2- 35.3
Estimated Trough (mcg/ml): 10.2-14.2
Estimated Half Life (H): 7.9
- Monitoring
No levels ordered at this time: consider levels in next few days
Pharmacokinetics Vancomycin I
- -
Patient Age: 59
Patient Sex: Male
Vancomycin Day #: 1
Indication: Genito-Urinary Tract
Requesting Provider: Kristyn Montgomery
Pertinent Antimicrobial Allergies:
nkda
Height / Weight:
Height 6 ft 1 in
Actual Weight 92.8 kg
IBW in k.9
Adjusted BW in k.1
- Vital Signs / Lab Results
Temp Pulse Resp BP Pulse Ox
98.3 F 103 15 156/95 96
10/29/24 11:55 10/29/24 13:00 10/29/24 13:00 10/29/24 13:00 10/29/24 13:00
Lab Results - Hematology
10/28/24 10/29/24
14:50 04:19
WBC 17.3 H 11.2 H
Lab Results - Chemistry
10/28/24 10/28/24 10/28/24
14:50 17:45 17:49
BUN 41 H Cancelled 38 H
Creatinine 1.8 H Cancelled 1.2
Estimated Creat Clear 50 Cancelled 75
Albumin 4.8
10/28/24 10/28/24 10/29/24
19:45 19:58 00:19
BUN Cancelled 40 H 37 H
Creatinine Cancelled 1.1 0.8
Estimated Creat Clear Cancelled 82 112
Albumin
10/29/24 10/29/24 10/29/24
04:19 07:59 11:55
BUN 35 H 30 H 28 H
Creatinine 0.6 L 0.6 L 0.6 L
Estimated Creat Clear > 125 > 125 > 125
Albumin
10/28/24 10/29/24
14:50 11:55
Lactic Acid 4.3 H* 0.8
Lab Results - Urine
10/28/24
15:43
Urine Nitrite (Reflex) Negative
Leukocyte Esterase Rfl Negative
Urine WBC (Reflex) 0-2
Ur Squamous Epith Cells 3-5
Urine Bacteria (Reflex) Few A
Microbiology Results
10/28/24 15:43 Blood Culture - Preliminary
Blood/Venous Positive culture in progress
Gram Stain - Final
10/28/24 15:43 Blood Culture - Preliminary
Blood/Venous Positive culture in progress
Gram Stain - Preliminary
[2024-10-29] MEDS: NOVOLIN N vial SC (14:20)
[2024-10-29 14:31] LABS: Glucose - Point of Care 255 mg/dl (70-99)
[2024-10-29] MEDS: NOVOLIN N vial 0.1 UNITS SC (14:36)
[2024-10-29] MEDS: ROCEPHIN 2000 MG IV (14:43)
[2024-10-29] MEDS: STERILE WATER FOR INJECTION 20 ML IV (14:43)
--- NOTE | 2024-10-29 14:44 | PTCARENOTE ---
NPH administered as ordered. Insulin drip to be dc'd at 1600.
--- NOTE | 2024-10-29 15:04 | CM ---
Patient seen at bedside with physician. Patient son stated that they have 13 steps to home and it is one story once you are in the home. Patient is not driving and he has a walker and wheelchair. Patient PCP is Dr. Alvarado, he uses the [facility] in
[place]. Patient son indicated that he has no concerns about bills for medications but patient stated to physician earlier that he had concerns about costs for medications. CM will continue to follow for discharge planning needs.
Plan; home with VN pending PT/OT assessment
[2024-10-29 15:09] LABS: Glucose - Point of Care 197 mg/dl (70-99)
--- NOTE | 2024-10-29 16:06 | PTCARENOTE ---
Insulin drip and IVFs dc'd. Patient assisted in ordering dinner. Downgraded to tele level.
[2024-10-29] MEDS: NOVOLOG FLEXPEN-LOW RESISTANCE 2 UNITS SC (16:46)
[2024-10-29] MEDS: NOVOLOG MIX 70/30 FLEXPEN 16 UNITS SC (16:50)
[2024-10-29 17:02] LABS: Glucose - Point of Care 248 mg/dl (70-99)
[2024-10-29] MEDS: LOVENOX 40 MG SC (17:46)
[2024-10-29 22:38] LABS: Glucose - Point of Care 175 mg/dl (70-99)
[2024-10-29] MEDS: MELATONIN 5 MG PO (23:16)
[2024-10-29] MEDS: TYLENOL 650 MG PO (23:16)
[2024-10-30] VITALS (9 sets, daily range): BP systolic 118–158; BP diastolic 83–107; PULSE 87–91; O2SAT 96
--- NOTE | 2024-10-30 07:22 | PN.DE.MGMTRT ---
Insulin Management
- -
10/30/2024 Diabetes management F/U:
59 year old male with PMH: HCL, HTN, CAD and T2DM, admitted on 10/28 with c/o vomiting, unable to keep liquids or solid food down. Found to be in DKA, GAP 38. A1C 14.4%, cr 0.6, eGFR > 60. Pt states he stopped taking his diabetes medication
(glimepiride 2 mg BID, Januvia 100 mg daily)6 to 8 months ago. He states he broke his meter, and requesting for a new one.
Patient is asleep, arousable but immediately falls back to sleep, unable to participate in discussion regarding diabetes care.
Patient transitioned off DKA protocol yesterday. Glucose range 197 to 248 since transitioning drip.
FBG 234 this AM. Will start Metformin 500 mg BID and increase 70/30 dose to 20 units BID with low corrective insulin.
10/29 Demonstrated use of insulin pen to patient and son. Patient was not feeling great but son did return demonstration without difficulty. Provided insulin pen instruction sheet with each step for prep and injection technique for reference.
Nursing to reinforce self injection with each insulin administration.
Will cont to follow
Diabetes History
- -
Type of Diabetes: 2 requiring insulin
Pre-Admission Diabetes Regimen
10/29/24 10/29/24 10/29/24
07:59 11:55 16:00
Creatinine 0.6 L 0.6 L Cancelled
Lab Results
Hemoglobin A1c 14.4 % (4.0-5.6) H 10/28/24 14:50
Insulin Pump Settings
IP Diabetes Regimen
10/29/24 10/29/24 10/29/24
07:57 07:59 09:10
Glucose 178 H
POC Glucose 164 H 207 H
10/29/24 10/29/24 10/29/24
10:04 11:02 11:54
Glucose
POC Glucose 193 H 174 H 203 H
10/29/24 10/29/24 10/29/24
11:55 13:00 14:20
Glucose 214 H
POC Glucose 203 H 255 H
10/29/24 10/29/24 10/29/24
14:57 16:00 16:44
Glucose Cancelled
POC Glucose 197 H 248 H
10/29/24
22:27
Glucose
POC Glucose 175 H
Meal type: Breakfast
Patient Education
[2024-10-30 07:43] LABS: Glucose - Point of Care 234 mg/dl (70-99)
[2024-10-30] MEDS: NOVOLOG FLEXPEN-LOW RESISTANCE 2 UNITS SC (07:43)
[2024-10-30] MEDS: NOVOLOG MIX 70/30 FLEXPEN 16 UNITS SC (07:44)
[2024-10-30] MEDS: THERAGRAN 1 TABLET PO (07:45)
[2024-10-30 07:51] LABS: Hematocrit 35.8 % (39.0-52.0); Hemoglobin 12.8 g/dL (13.0-18.0); Mean Corp Hgb Conc. 35.8 g/dL (33.0-37.0); Mean Corpuscular Hgb 31.8 pg (27.0-31.0); Mean Corpuscular Volume 88.8 fL (80.0-94.0); Mean Platelet Volume 9.4 fL (7.4-10.4); Platelet Count 166 10^3/uL (130-400); Red Blood Cell Count 4.03 10^6/uL (4.70-6.10); Red Cell Dist. Width 12.8 % (11.5-14.5); White Blood Cell Count 8.5 10^3/uL (4.8-10.8)
[2024-10-30] MEDS: NOVOLOG MIX 70/30 FLEXPEN SC (07:59)
[2024-10-30 08:16] LABS: Blood Urea Nitrogen 18 mg/dl (9-20); Calcium 8.4 mg/dl (8.4-10.2); Carbon Dioxide 20 mmol/L (22-30); Chloride 105 mmol/L (98-107); Estimated Creatinine Clearance > 125 ml/min; Glucose 214 mg/dl (70-99); Potassium 3.1 mmol/L (3.5-5.1); Sodium 135 mmol/L (135-145); eGFR > 60.00
--- NOTE | 2024-10-30 09:19 | W.PN.HOSP.TC ---
Addendum entered and electronically signed by Valerie Rodriguez MD 10/30/24 13:54:
I saw and evaluated the patient. I reviewed the resident�s note and agree with findings and plan as documented in the resident�s note.
A/P:
DKA
HGB A1C 14.4
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
Diabetes eduation
# bacteremia with CONS
blood culture x2 sets positive
check repeat blood culture 10/30 and 10/31
cont Ceftriaxone
Would consult ID for 2 sets positive blood culture
ED--creat 1.8--very dehydrated on exam--resolved with IVF
SCr today 0.6
hypophosphatemia--replete
pseudohyponatremia--on admission--now resolved
weight loss--> 100 lbs per pt--could be due to uncontrolled DM vs other (occult malignancy)--fletcher scan when stable
DVT proph--Heparin Subq
Code status--Full code
DW son at bedside
Original Note:
Today's Communication/Plan
-
Continue insulin subcu
Final blood culture pending
Continue antibiotics for now
Replete potassium and phosphorus as needed
Assessment / Plan
Assessment / Plan
59-year-old male with type 2 diabetes and medical noncompliance presenting with vomiting, weakness and decreased appetite:
# weakness, decreased appetite, vomiting
- Noncompliant to diabetes meds, likely DKA, less likely starvation ketoacidosis vs sepsis
- BG 615 on arrival
- U/A ketones 3+, glucose 4+
- VBG: ph= 6.98, bicarb 3.8 --> 15
- Lactic acid=4.3, repeat pending
- No source of infection on history and exam, CXR neg, U/A neg for infection, BCx preliminary positive for gram + cocci, probable coagulase-negative staph, cont antibiotics, final B/Cx pending
- White count downtrending, 8.5 today
- Patient meets criteria for SIRS (tachycardia, tachypnea, white count) but does not appear septic, will wait for final B/Cx
- Cr 1.8 --> 0.6, cont lovenox
- Chest x-ray negative for acute abnormalities
- Continue IV fluids, KCl, IV insulin, bicarb --> dc'ed
- Anion gap <12, will consult diabetes team for transition to insulin subq after closed gap x2 --> transitioned to subcu insulin (70/30 insulin 20 units twice daily)
- HbA1c 14.4
- B-hydroxybutyrate 10.6
- K and Ph low, replete as needed
# weight loss
- per patient, unintentional
- Patient will need to follow-up with PCP after discharge
# Head trauma
- CT head and neck negative for any acute abnormalities
DVT prophylaaxis
Heparin Subq
Code status
Full code
Anticipated Discharge: Within 24 hours
Subjective/Interval History
-
Date of Service: October 30, 2024
Objective Data
-
Labs:
Laboratory Results
10/30/24
07:21
WBC 8.5
Hgb 12.8 L
Hct 35.8 L
Plt Count 166 D
Sodium 135
Potassium 3.1 L
Chloride 105
Carbon Dioxide 20 L
BUN 18
Creatinine 0.6 L
Glucose 214 H
Calcium 8.4
Vital Signs:
Vital Signs
Temp Pulse Resp BP Pulse Ox
97.8 F 91 16 141/93 96
10/30/24 07:19 10/30/24 07:19 10/30/24 07:19 10/30/24 07:19 10/30/24 07:19
I&O
10/29/24 10/30/24 10/31/24
06:59 06:59 06:59
Intake Total 1930 / 2146.8 2412.2 / 2412.2
Output Total 1800 / 1800 2199 / 2199
Balance 130 / 346.8 212.2 / 212.2
Review of Systems
-
History Source: Patient
Constitutional: Reports Weakness
EENT: Reports No Symptoms Reported
Respiratory: Reports No Symptoms
Cardiac: Reports No Symptoms
Abdomen/GI: Reports No Symptoms
Breast: Reports No Symptoms
Genitourinary: Reports No Symptoms
Musculoskeletal: Reports Muscle Weakness
Skin: Reports No Symptoms
Neuro: Reports No Symptoms
Endocrine: Reports No Symptoms
Hematologic / Lymphatic: Reports No Symptoms
Allergy / Immunology: Reports No Symptoms
Physical Exam
-
General: Well Developed, Well Nourished, No Apparent Distress and Comfortable
HEENT: Normocephalic
Respiratory: Clear to Auscultation
Cardiac: Regular Rhythm and S1/S2
GI: Soft, Nontender, Nondistended and Normal Bowel Sounds
Genito-urinary: No Costovertebral Tender
Musculoskeletal: No Clubbing, No Cyanosis and No Edema
Skin: Warm
Neuro: Awake, Alert and Oriented
Hematologic / Lymphatic: No Lymphadenopathy
Psych: Calm
[2024-10-30 10:59] LABS: Glucose - Point of Care 196 mg/dl (70-99)
[2024-10-30] MEDS: KCL 40 MEQ PO (11:49)
[2024-10-30] MEDS: NOVOLOG FLEXPEN-LOW RESISTANCE 1 UNITS SC ×2 (11:51→18:30)
[2024-10-30] MEDS: STERILE WATER FOR INJECTION 20 ML IV (13:11)
[2024-10-30] MEDS: ROCEPHIN 2000 MG IV (13:11)
[2024-10-30] MEDS: TYLENOL 650 MG PO (13:11)
[2024-10-30] MEDS: NEUTRA-PHOS POWDER PACKET 250 MG PO ×3 (14:12→20:56)
[2024-10-30 17:49] LABS: Glucose - Point of Care 193 mg/dl (70-99)
[2024-10-30] MEDS: LOVENOX 40 MG SC (18:30)
[2024-10-30] MEDS: GLUCOPHAGE 500 MG PO (18:30)
[2024-10-30] MEDS: NOVOLOG MIX 70/30 FLEXPEN 20 UNITS SC (18:32)
[2024-10-30 21:02] LABS: Glucose - Point of Care 196 mg/dl (70-99)
[2024-10-31 02:43] VITALS: BP 143/95
[2024-10-31 07:00] VITALS: BP 150/103
[2024-10-31 08:04] LABS: Glucose - Point of Care 226 mg/dl (70-99)
[2024-10-31] MEDS: TYLENOL 650 MG PO ×2 (08:39→14:18)
[2024-10-31] MEDS: THERAGRAN 1 TABLET PO (08:39)
[2024-10-31] MEDS: GLUCOPHAGE 500 MG PO ×2 (08:39→16:48)
[2024-10-31 08:40] LABS: % Basophils 0.2 % (0-2); % Eosinophils 0.5 % (0-6); % Immature Granulocytes 0.5 % (0-0.5); % Lymphocytes 23.8 % (20.5-51.1); % Monocytes 8.4 % (1.7-9.3); % Neutrophils 66.6 % (42.2-75.2); Absolute Lymphocytes 1.5 10^3/uL (1.2-3.4); Absolute Monocytes 0.5 10^3/uL (0.1-0.6); Absolute Neutrophils 4.2 10^3/uL (1.4-6.5); Hematocrit 39.4 % (39.0-52.0); Mean Corp Hgb Conc. 35.5 g/dL (33.0-37.0); Mean Corpuscular Hgb 31.4 pg (27.0-31.0); Mean Corpuscular Volume 88.3 fL (80.0-94.0); Mean Platelet Volume 9.5 fL (7.4-10.4); Nucleated Red Blood Cells % 0 % (-); Platelet Count 175 10^3/uL (130-400); Red Blood Cell Count 4.46 10^6/uL (4.70-6.10); Red Cell Dist. Width 12.4 % (11.5-14.5); White Blood Cell Count 6.3 10^3/uL (4.8-10.8)
[2024-10-31] MEDS: NOVOLOG FLEXPEN-LOW RESISTANCE 2 UNITS SC (08:40)
[2024-10-31] MEDS: NOVOLOG MIX 70/30 FLEXPEN 20 UNITS SC ×2 (08:40→16:44)
[2024-10-31] MEDS: NEUTRA-PHOS POWDER PACKET 250 MG PO ×2 (08:42→12:14)
--- NOTE | 2024-10-31 09:05 | W.PN.HOSP.TC ---
Addendum entered and electronically signed by Mounika Rodriguez MD 10/31/24 15:41:
I saw and evaluated the patient independently. I reviewed the resident�s note and agree with findings and plan as documented by Dr. Freed.
GENERAL: well developed, well nourished, male in no apparent distress
HEENT: NC/AT--dry mucous membranes improved
HEART: regular rate and rhythm, +S1, +S2, tachycardic
LUNGS : clear to auscultation bilaterally, tachypneic
ABDOM: soft, nontender, nondistended, + bowel sounds
EXT: no cyanosis, clubbing, or edema
NEUROLOGIC: grossly intact
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
insulin 20 units twice daily) and metformin 500 bid--HGB A1C 14.4--B-hydroxybutyrate 10.2--pH 6.9--s/p 1 amp bicarb--advanced diet
ED--creat 1.8--very dehydrated on exam--resolved with IVF
hypophosphatemia--replete
pseudohyponatremia--on admission--now resolved
weight loss--> 100 lbs per pt--could be due to uncontrolled DM vs other (occult malignancy)--outpt chest/ab/pelvis CT scans
DVT proph--Heparin Subq
Code status--Full code
Original Note:
Today's Communication/Plan
-
Continue insulin subcu and metformin
ID following, switched rocephin to vanco
Repeat BCx pending
TTE
Assessment / Plan
Assessment / Plan
59-year-old male with type 2 diabetes and medical noncompliance presenting with vomiting, weakness and decreased appetite:
# weakness, decreased appetite, vomiting
- Noncompliant to diabetes meds, likely DKA, less likely starvation ketoacidosis vs sepsis
- BG 615 on arrival
- U/A ketones 3+, glucose 4+
- VBG: ph= 6.98, bicarb 3.8 --> 15
- Lactic acid=4.3, repeat pending
- No source of infection on history and exam, CXR neg, U/A neg for infection, BCx preliminary positive for gram + cocci, probable coagulase-negative staph, cont antibiotics, final B/Cx pending
- White count downtrending, 8.5 today
- Patient meets criteria for SIRS (tachycardia, tachypnea, white count) but does not appear septic, will wait for final B/Cx
- Cr 1.8 --> 0.6, cont lovenox
- Chest x-ray negative for acute abnormalities
- Continue IV fluids, KCl, IV insulin, bicarb --> dc'ed
- Anion gap <12, will consult diabetes team for transition to insulin subq after closed gap x2 --> transitioned to subcu insulin (70/30 insulin 20 units twice daily) and metformin 500 bid
- HbA1c 14.4
- B-hydroxybutyrate 10.6
# Hypokalemia
- Replete as needed
# Bacteremia
- BCx x2 positive for coag negative staph
- On Ceftriaxone
- ID following -- Now switched to Vanco, TTE, Xray spine and abdomen for potential source of infection from hardware
- Repeat Bcx pending
#RLE pain
- No signs of infection, DVT, inflammation on exam
- No radiculopathy
- Pain better with tylenol
- Monitor
# Weight loss
- per patient, unintentional
- Patient will need to follow-up with PCP after discharge
- ID following --> suggested t spot, outpt f/u with PCP for routine cancer screenings
# Head trauma
- CT head and neck negative for any acute abnormalities
DVT prophylaaxis
Heparin Subcu
Code status
Full code
Anticipated Discharge: 24 - 48 hours
Subjective/Interval History
-
Date of Service: October 31, 2024
Objective Data
-
Labs:
Laboratory Results
10/31/24
08:14
WBC 6.3
Hgb 14.0
Hct 39.4
Plt Count 175
Sodium Pending
Potassium Pending
Chloride Pending
Carbon Dioxide Pending
BUN Pending
Creatinine Pending
Glucose Pending
Calcium Pending
Vital Signs:
Vital Signs
Temp Pulse Resp BP Pulse Ox
98.2 F 84 20 150/103 96
10/31/24 07:00 10/31/24 07:00 10/31/24 07:00 10/31/24 07:00 10/31/24 07:00
I&O
10/30/24 10/31/24 11/01/24
06:59 06:59 06:59
Intake Total 2412.2 / 2412.2
Output Total 2200 / 2200 500 / 500
Balance 212.2 / 212.2 -500 / -500
Review of Systems
-
History Source: Patient
Constitutional: Reports Sleep Disturbance
EENT: Reports No Symptoms Reported
Respiratory: Reports No Symptoms
Cardiac: Reports No Symptoms
Abdomen/GI: Reports No Symptoms
Breast: Reports No Symptoms
Genitourinary: Reports No Symptoms
Musculoskeletal: Reports Muscle Pain (Right medial thigh)
Skin: Reports No Symptoms
Neuro: Reports No Symptoms
Endocrine: Reports No Symptoms
Hematologic / Lymphatic: Reports No Symptoms
Allergy / Immunology: Reports No Symptoms
Physical Exam
-
General: Well Developed, Well Nourished, No Apparent Distress and Comfortable
HEENT: Normocephalic
Respiratory: Clear to Auscultation
Cardiac: Regular Rhythm and S1/S2
GI: Soft, Nontender, Nondistended and Normal Bowel Sounds
Genito-urinary: No Costovertebral Tender
Musculoskeletal: No Clubbing, No Cyanosis, No Edema and Other (No redness, swelling, tenderness to touch on right lower extremity)
Skin: Warm
Neuro: Awake, Alert and Oriented
Hematologic / Lymphatic: No Lymphadenopathy
Psych: Calm
[2024-10-31 09:11] LABS: Blood Urea Nitrogen 13 mg/dl (9-20); Calcium 8.5 mg/dl (8.4-10.2); Carbon Dioxide 22 mmol/L (22-30); Chloride 100 mmol/L (98-107); Estimated Creatinine Clearance > 125 ml/min; Glucose 237 mg/dl (70-99); Phosphorus 2.4 mg/dl (2.5-4.5); Potassium 3.3 mmol/L (3.5-5.1); Sodium 135 mmol/L (135-145); eGFR > 60.00
[2024-10-31 11:00] VITALS: BP 141/95
[2024-10-31 11:52] LABS: Glucose - Point of Care 170 mg/dl (70-99)
[2024-10-31] MEDS: KCL 40 MEQ PO (12:13)
[2024-10-31] MEDS: NOVOLOG FLEXPEN-LOW RESISTANCE 1 UNITS SC (12:14)
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
[2024-10-31] MEDS: STERILE WATER FOR INJECTION 20 ML IV (14:00)
[2024-10-31] MEDS: ROCEPHIN 2000 MG IV (14:01)
--- NOTE | 2024-10-31 14:35 | PHA.VAN.IN ---
Assessment
- Assessment
Renal Function: Unknown baseline
Maximum Temperature: 98.6
Minimum Temperature: 98.1
AUC Dosing Plan
- Dosing Variables
Dosing Weight (kg): 93.4
Dosing CrCl (ml/min): 125
Vd coefficient (L/kg): 0.7
- Empiric Dosing
Initial / Loading Dose: Vanc 2gm--admin pending. Did receive Vanc 2gm 10/29 at 1300
Maintenance Regimen: Vanc 1000mg IV q8H
Estimated AUC (mcg*h/mL): 447
Estimated Peak (mcg*h/mL): 26.4
Estimated Trough (mcg/ml): 12.4
Estimated Half Life (H): 6.4
- Monitoring
No levels ordered at this time: Consider levels after 11/01 2200 dose
Pharmacokinetics Vancomycin I
- -
Patient Age: 59
Patient Sex: Male
Vancomycin Day #: 1
Indication: Bacteremia
Requesting Provider: Pricilla
Pertinent Antimicrobial Allergies:
nkda
Height / Weight:
Height 6 ft 1 in
Actual Weight 93.395 kg
IBW in k
Adjusted BW in k.3
Pertinent Past Medical History: Type 2 Diabetes; 100lb weight loss over last year; ED
- Vital Signs / Lab Results
Temp Pulse Resp BP Pulse Ox
98.1 F 82 18 141/95 97
10/31/24 11:00 10/31/24 11:00 10/31/24 11:00 10/31/24 11:00 10/31/24 11:00
Lab Results - Hematology
10/28/24 10/29/24 10/30/24
14:50 04:19 07:21
WBC 17.3 H 11.2 H 8.5
10/31/24
08:14
WBC 6.3
Lab Results - Chemistry
10/28/24 10/28/24 10/28/24
14:50 17:45 17:49
BUN 41 H Cancelled 38 H
Creatinine 1.8 H Cancelled 1.2
Estimated Creat Clear 50 Cancelled 75
Albumin 4.8
10/28/24 10/28/24 10/29/24
19:45 19:58 00:19
BUN Cancelled 40 H 37 H
Creatinine Cancelled 1.1 0.8
Estimated Creat Clear Cancelled 82 112
Albumin
10/29/24 10/29/24 10/29/24
04:19 07:59 11:55
BUN 35 H 30 H 28 H
Creatinine 0.6 L 0.6 L 0.6 L
Estimated Creat Clear > 125 > 125 > 125
Albumin
10/29/24 10/30/24 10/31/24
16:00 07:21 08:14
BUN Cancelled 18 13
Creatinine Cancelled 0.6 L 0.5 L
Estimated Creat Clear Cancelled > 125 > 125
Albumin
10/28/24 10/29/24
14:50 11:55
Lactic Acid 4.3 H* 0.8
Lab Results - Urine
10/28/24
15:43
Urine Nitrite (Reflex) Negative
Leukocyte Esterase Rfl Negative
Urine WBC (Reflex) 0-2
Ur Squamous Epith Cells 3-5
Urine Bacteria (Reflex) Few A
Microbiology Results
10/28/24 15:43 Blood Culture - Preliminary
Blood/Venous Coagulase neg. staphylococcus
Gram Stain - Final
10/30/24 12:13 Blood Culture - Preliminary
Blood/Venous No Growth in 24 hours- Final report to follow
10/28/24 15:43 Blood Culture - Preliminary
Blood/Venous Coagulase neg. staphylococcus
Gram Stain - Preliminary
[2024-10-31 15:00] VITALS: BP 130/89
--- NOTE | 2024-10-31 15:10 | PTCARENOTE ---
2/1- Patient is able with 2person assist with a walker, to stand, walk a couple steps to bedside chair and/or bedside commode. Patient c/o significant dizziness upon position changes. When sitting in an upright position, patient states, 'the world
is swirling around me.' He states when sitting in an upright position, RLE and R-hip is 8/10 aching/throbbing pain even after Acetaminophen administration. Notified Physician.
[2024-10-31] MEDS: VANCOCIN 540 MG IV (15:49)
[2024-10-31 16:43] LABS: Glucose - Point of Care 257 mg/dl (70-99)
[2024-10-31] MEDS: NOVOLOG FLEXPEN-LOW RESISTANCE 3 UNITS SC (16:45)
[2024-10-31] MEDS: LOVENOX SC (16:46)
[2024-10-31 19:28] VITALS: BP 117/86
[2024-10-31] MEDS: VANCOCIN 200 IV (20:47)
[2024-10-31] MEDS: FLUSH (NSS) 2 FLUSH IV (20:48)
[2024-10-31 21:28] LABS: Glucose - Point of Care 161 mg/dl (70-99)
[2024-10-31 23:52] VITALS: BP 126/88
[2024-11-01 03:08] VITALS: BP 132/85
[2024-11-01] MEDS: VANCOCIN 200 IV ×3 (05:25→21:16)
[2024-11-01 07:02] VITALS: BP 149/92
[2024-11-01 07:50] LABS: Glucose - Point of Care 193 mg/dl (70-99)
[2024-11-01 08:15] LABS: % Basophils 0.1 % (0-2); % Immature Granulocytes 0.4 % (0-0.5); % Lymphocytes 28.1 % (20.5-51.1); % Monocytes 7.8 % (1.7-9.3); % Neutrophils 62.6 % (42.2-75.2); Absolute Eosinophils 0.1 10^3/uL (0-0.7); Absolute Lymphocytes 1.9 10^3/uL (1.2-3.4); Absolute Monocytes 0.5 10^3/uL (0.1-0.6); Absolute Neutrophils 4.2 10^3/uL (1.4-6.5); Hematocrit 39.1 % (39.0-52.0); Hemoglobin 14.2 g/dL (13.0-18.0); Mean Corp Hgb Conc. 36.3 g/dL (33.0-37.0); Mean Corpuscular Hgb 31.8 pg (27.0-31.0); Mean Corpuscular Volume 87.7 fL (80.0-94.0); Mean Platelet Volume 9.8 fL (7.4-10.4); Nucleated Red Blood Cells % 0 % (-); Platelet Count 193 10^3/uL (130-400); Red Blood Cell Count 4.46 10^6/uL (4.70-6.10); Red Cell Dist. Width 12.4 % (11.5-14.5); White Blood Cell Count 6.8 10^3/uL (4.8-10.8)
[2024-11-01] MEDS: NOVOLOG FLEXPEN-LOW RESISTANCE 1 UNITS SC (08:28)
[2024-11-01] MEDS: NOVOLOG MIX 70/30 FLEXPEN 20 UNITS SC ×2 (08:29→16:25)
[2024-11-01] MEDS: THERAGRAN 1 TABLET PO (08:30)
[2024-11-01] MEDS: GLUCOPHAGE 500 MG PO ×2 (08:30→15:37)
[2024-11-01] MEDS: LOVENOX SC (08:31)
[2024-11-01 08:45] LABS: Blood Urea Nitrogen 11 mg/dl (9-20); Calcium 8.5 mg/dl (8.4-10.2); Carbon Dioxide 23 mmol/L (22-30); Chloride 96 mmol/L (98-107); Estimated Creatinine Clearance > 125 ml/min; Glucose 221 mg/dl (70-99); Sodium 132 mmol/L (135-145); eGFR > 60.00
[2024-11-01] MEDS: TYLENOL 650 MG PO ×3 (08:45→21:25)
--- NOTE | 2024-11-01 10:30 | PHA.VAN.FU ---
Vancomycin Assessment / Plan
- Assessment
Renal Function: Stable
WBC's are: Trending Down
In the past 24 hrs, patient has been: Afebrile
- Dosing Plan
Continue: Vanc 1gm IV q8H
- Monitoring Plan
Peak Level: 2/3 at 0030
Trough Level: 2/3 at 0530
- Follow Up
Pharmacy will continue to follow.
Vancomycin Follow UP
- -
Patient Age: 59
Patient Sex: Male
Vancomycin Day #: 2
Indication: Bacteremia
Requesting Provider: Pricilla
Pertinent Antimicrobial Allergies:
nkda
Height / Weight:
Height 6 ft 1 in
Actual Weight 93.395 kg
IBW in k
Adjusted BW in k.3
Pertinent Past Medical History: Type 2 Diabetes; 100lb weight loss over last year; ED
- Vital Signs / Lab Results
Temp Pulse Resp BP Pulse Ox
97.5 F 82 15 149/92 97
11/01/24 07:02 11/01/24 07:02 11/01/24 07:02 11/01/24 07:02 11/01/24 07:02
Lab Results - Hematology
10/30/24 10/31/24 11/01/24
07:21 08:14 07:29
WBC 8.5 6.3 6.8
Lab Results - Chemistry
10/29/24 10/29/24 10/30/24
11:55 16:00 07:21
BUN 28 H Cancelled 18
Creatinine 0.6 L Cancelled 0.6 L
Estimated Creat Clear > 125 Cancelled > 125
10/31/24 11/01/24
08:14 07:29
BUN 13 11
Creatinine 0.5 L 0.5 L
Estimated Creat Clear > 125 > 125
10/29/24
11:55
Lactic Acid 0.8
Microbiology Results
10/28/24 15:43 Blood Culture - Final
Blood/Venous Staphylococcus hominis
Gram Stain - Final
10/28/24 15:43 Blood Culture - Preliminary
Blood/Venous Staphylococcus hominis
Gram Stain - Preliminary
10/31/24 08:14 Blood Culture - Preliminary
Blood/Venous No Growth in 24 hours- Final report to follow
10/30/24 12:13 Blood Culture - Preliminary
Blood/Venous No Growth in 24 hours- Final report to follow
[2024-11-01 11:13] LABS: Glucose - Point of Care 282 mg/dl (70-99)
[2024-11-01 11:23] VITALS: BP 139/86
[2024-11-01] MEDS: NOVOLOG FLEXPEN-LOW RESISTANCE 3 UNITS SC (12:15)
--- NOTE | 2024-11-01 14:57 | CM ---
Chart reviewed. PT is recommending skilled rehab at this time.
CM spoke w/ pt's son, Josemanuel, regarding SNF. Josemanuel shared that pt was not moving around great at all prior to admitting to the hospital. Josemanuel stated that pt has been seeing two neurologists regarding his weakness and haven't determined the issue
or causes of this.
Josemanuel is requesting to speak w/ pt about rehab first before CM as pt can be difficult and will possibly decline rehab as pt doesn't like being out of his house. Josemanuel stated he is due to see pt again tomorrow morning in which CM can follow up w/
him then.
Plan: SNF recommended. If pt is agreeable, will send referrals
--- NOTE | 2024-11-01 15:04 | W.PN.HOSP.TC ---
Addendum entered and electronically signed by Mounika Rodriguez MD 11/01/24 20:23:
I saw and evaluated the patient independently. I reviewed the resident�s note and agree with findings and plan as documented by Dr. Freed.
GENERAL: well developed, well nourished, male in no apparent distress
HEENT: NC/AT--dry mucous membranes improved
HEART: regular rate and rhythm, +S1, +S2
LUNGS : clear to auscultation bilaterally
ABDOM: soft, nontender, nondistended, + bowel sounds
EXT: no cyanosis, clubbing, or edema
NEUROLOGIC: grossly intact
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
(70/30 insulin 20 units twice daily) and metformin 500 bid--HGB A1C 14.4--B-hydroxybutyrate 10.2--pH 6.9--s/p 1 amp bicarb--tolerating diet
orthostasis--pt symptomatic--will try IVF first and follow orthostatics--consideration for midodrine if not resolved with IVF--do not believe this is sepsis related
ED--creat 1.8 on admission--very dehydrated on exam--resolved with IVF
hypophosphatemia--replete
pseudohyponatremia--on admission--now resolved
weight loss--> 100 lbs per pt--could be due to uncontrolled DM vs other (occult malignancy)--outpt chest/ab/pelvis CT scans--but TB testing here per ID
DVT proph--Heparin Subq
Code status--Full code
Original Note:
Today's Communication/Plan
-
Continue Vanco
TB test pending
Replete potassium as needed
Assessment / Plan
Assessment / Plan
59-year-old male with type 2 diabetes and medical noncompliance presenting with vomiting, weakness and decreased appetite:
# weakness, decreased appetite, vomiting
- Noncompliant to diabetes meds, likely DKA, less likely starvation ketoacidosis vs sepsis
- BG 615 on arrival
- U/A ketones 3+, glucose 4+
- VBG: ph= 6.98, bicarb 3.8 --> 15
- Lactic acid=4.3, repeat pending
- No source of infection on history and exam, CXR neg, U/A neg for infection, initial BCx positive for Staphylococcus hominis, cont antibiotics, repeat B/Cx no growth
- White count back to normal
- Patient meets criteria for SIRS (tachycardia, tachypnea, white count) but does not appear septic, repeat blood culture no growth
- Cr 1.8 --> 0.6, cont lovenox
- Chest x-ray negative for acute abnormalities
- Continue IV fluids, KCl, IV insulin, bicarb --> dc'ed
- Anion gap <12, will consult diabetes team for transition to insulin subq after closed gap x2 --> continue subcu insulin (70/30 insulin 20 units twice daily) and metformin 500 bid
- HbA1c 14.4
- B-hydroxybutyrate 10.6
# Hypokalemia
- Replete as needed
# Mild hyponatremia
- Follow BMP
# Bacteremia
- BCx x2 positive for Staphylococcus hominis -- resistant to ampicillin, erythromycin, tetracycline
- ID following -- Now switched to Vanco, TTE, Xray spine and abdomen showed no foreign body
- Repeat blood culture negative
- Continue Vanco for now
#RLE pain
- No signs of infection, DVT, inflammation on exam
- No radiculopathy
- Pain better with tylenol
- Now resolved
# Weight loss
- per patient, unintentional
- Patient will need to follow-up with PCP after discharge
- ID following --> t spot pending, outpt f/u with PCP for routine cancer screenings
# Head trauma
- CT head and neck negative for any acute abnormalities
DVT prophylaaxis
Heparin Subcu
Code status
Full code
Anticipated Discharge: 24 - 48 hours
Subjective/Interval History
-
Date of Service: November 01, 2024
Objective Data
-
Labs:
Laboratory Results
11/01/24
07:29
WBC 6.8
Hgb 14.2
Hct 39.1
Plt Count 193
Sodium 132 L
Potassium 3.0 L
Chloride 96 L
Carbon Dioxide 23
BUN 11
Creatinine 0.5 L
Glucose 221 H
Calcium 8.5
Vital Signs:
Vital Signs
Temp Pulse Resp BP Pulse Ox
98.5 F 85 15 139/86 98
11/01/24 11:23 11/01/24 11:23 11/01/24 11:23 11/01/24 11:23 11/01/24 11:23
I&O
10/31/24 11/01/24 11/02/24
06:59 06:59 06:59
Intake Total 400 / 400
Output Total 500 / 500 450 / 450
Balance -500 / -500 -50 / -50
Review of Systems
-
History Source: Patient
Constitutional: Reports No Symptoms
EENT: Reports No Symptoms Reported
Respiratory: Reports No Symptoms
Cardiac: Reports No Symptoms
Abdomen/GI: Reports No Symptoms
Breast: Reports No Symptoms
Genitourinary: Reports No Symptoms
Musculoskeletal: Reports No Symptoms
Skin: Reports No Symptoms
Neuro: Reports No Symptoms
Endocrine: Reports No Symptoms
Hematologic / Lymphatic: Reports No Symptoms
Allergy / Immunology: Reports No Symptoms
Physical Exam
-
General: Well Developed, Well Nourished, No Apparent Distress and Comfortable
HEENT: Normocephalic
Respiratory: Clear to Auscultation
Cardiac: Regular Rhythm and S1/S2
GI: Soft, Nontender, Nondistended and Normal Bowel Sounds
Genito-urinary: No Costovertebral Tender
Musculoskeletal: No Clubbing, No Cyanosis and No Edema
Skin: Warm
Neuro: Awake, Alert and Oriented
Hematologic / Lymphatic: No Lymphadenopathy
Psych: Calm
[2024-11-01] MEDS: KCL 40 MEQ PO (15:36)
[2024-11-01 15:58] VITALS: BP 118/80; BP 88/55
[2024-11-01 16:23] LABS: Glucose - Point of Care 216 mg/dl (70-99)
[2024-11-01] MEDS: NOVOLOG FLEXPEN-LOW RESISTANCE 2 UNITS SC (16:25)
[2024-11-01] MEDS: NSS 500 IV (16:53)
[2024-11-01] MEDS: NSS 1000 IV (17:43)
[2024-11-01 19:22] VITALS: BP 147/95
[2024-11-01 21:39] LABS: Glucose - Point of Care 133 mg/dl (70-99)
[2024-11-01 23:27] VITALS: BP 138/85
[2024-11-02] VITALS (8 sets, daily range): BP systolic 87–144; BP diastolic 61–91; PULSE 84–104
[2024-11-02 01:13] LABS: Vancomycin Peak 18.3 ug/ml (18-26)
[2024-11-02 06:03] LABS: % Basophils 0.3 % (0-2); % Eosinophils 2.8 % (0-6); % Immature Granulocytes 0.8 % (0-0.5); % Lymphocytes 36.7 % (20.5-51.1); % Monocytes 9.1 % (1.7-9.3); % Neutrophils 50.3 % (42.2-75.2); Absolute Eosinophils 0.2 10^3/uL (0-0.7); Absolute Immature Granulocytes 0.1 10^3/uL (0-0.05); Absolute Lymphocytes 2.2 10^3/uL (1.2-3.4); Absolute Monocytes 0.6 10^3/uL (0.1-0.6); Hematocrit 42.6 % (39.0-52.0); Hemoglobin 15.2 g/dL (13.0-18.0); Mean Corp Hgb Conc. 35.7 g/dL (33.0-37.0); Mean Corpuscular Hgb 31.6 pg (27.0-31.0); Mean Corpuscular Volume 88.6 fL (80.0-94.0); Mean Platelet Volume 9.1 fL (7.4-10.4); Nucleated Red Blood Cells % 0 % (-); Platelet Count 210 10^3/uL (130-400); Red Blood Cell Count 4.81 10^6/uL (4.70-6.10); Red Cell Dist. Width 12.3 % (11.5-14.5); White Blood Cell Count 6.1 10^3/uL (4.8-10.8)
[2024-11-02] MEDS: VANCOCIN 200 IV ×3 (06:15→22:55)
[2024-11-02 06:27] LABS: Blood Urea Nitrogen 10 mg/dl (9-20); Calcium 8.5 mg/dl (8.4-10.2); Carbon Dioxide 29 mmol/L (22-30); Chloride 98 mmol/L (98-107); Estimated Creatinine Clearance > 125 ml/min; Glucose 195 mg/dl (70-99); Potassium 3.1 mmol/L (3.5-5.1); Sodium 134 mmol/L (135-145); eGFR > 60.00
[2024-11-02 07:42] LABS: Glucose - Point of Care 239 mg/dl (70-99)
--- NOTE | 2024-11-02 08:39 | PN.DE.MGMTRT ---
Insulin Management
- -
11/02/2024: Diabetes management F/U:
59 year old male with PMH: HCL, HTN, CAD and T2DM, admitted on 10/28 with c/o vomiting, unable to keep liquids or solid food down. Found to be in DKA, GAP 38. A1C 14.4%, cr 0.6, eGFR > 60. Pt states he stopped taking his diabetes medication
(glimepiride 2 mg BID, Januvia 100 mg daily)6 to 8 months ago. He states he broke his meter, and requesting for a new one.
Patient is asleep, arousable but immediately falls back to sleep, unable to participate in discussion regarding diabetes care. Son at bedside, staes he is going to assist his Dad with diabetes care at home after d/c. Patient transitioned off DKA
protocol 10/29.
Glucose range 170 to 282 since transitioning off drip, requiring 1-3 units of additional corrective insulin
FBG 195(V), 239 POC this AM. Will increase 70/30 dose to 22 units BID.
Cont Metformin 500 mg BID and low corrective insulin.
10/29 Pt and son were provided insulin pen instructions. Patient was not feeling great but son did return demonstration without difficulty. Provided insulin pen instruction sheet with each step for prep and injection technique for reference.
Nursing to reinforce self injection with each insulin administration.
Will cont to follow
Diabetes History
- -
Type of Diabetes: 2 requiring insulin
Pre-Admission Diabetes Regimen
11/01/24 11/02/24
05:46
Creatinine 0.5 L 0.5 L
Lab Results
Hemoglobin A1c 14.4 % (4.0-5.6) H 10/28/24 14:50
Insulin Pump Settings
IP Diabetes Regimen
11/01/24 11/01/24 11/01/24
11:12 16:22
Glucose 221 H
POC Glucose 282 H 216 H
11/01/24 11/02/2411/02/25
21:38 05:46 07:40
Glucose 195 H
POC Glucose 133 H 239 H
Meal type: Dinner
Meal type: Lunch
Meal type: Breakfast
Amount consumed: 75%
Amount consumed: 95%
Amount consumed: 70%
Patient Education
[2024-11-02] MEDS: NOVOLOG MIX 70/30 FLEXPEN 20 UNITS SC (08:40)
[2024-11-02] MEDS: GLUCOPHAGE 500 MG PO ×2 (08:40→16:09)
[2024-11-02] MEDS: THERAGRAN 1 TABLET PO (08:40)
[2024-11-02] MEDS: KCL 40 MEQ PO (08:40)
[2024-11-02] MEDS: NOVOLOG FLEXPEN-LOW RESISTANCE 2 UNITS SC ×2 (08:41→12:44)
--- NOTE | 2024-11-02 09:01 | PHA.VAN.FU ---
Vancomycin Assessment / Plan
- Assessment
Renal Function: Stable
WBC's are: Trending Down
In the past 24 hrs, patient has been: Afebrile
Concomitant Antimicrobials: none
- Assessment - Therapeutic Drug Monitoring
Extrapolated Cmax (mcg/mL): 22
Peak level was drawn: Appropriately
Extrapolated Cmin (mcg/mL): 12.5
Trough Drawn: Appropriately
Levels were drawn: At steady state
Calculated AUC (mcg*h/mL): 404
Calculated ke: 0.0806
Calculated half life (H): 8.6
Calculated Vd (L): 91.99
Calculated Vanc CL (ml/min): 123.63
- Dosing Plan
Continue: vancomycin 1000 mg q8h
- Monitoring Plan
Level(s) appropriate: Recheck trough at minimum of weekly intervals, Repeat sooner for changes in renal function or clinical status
- Follow Up
Pharmacy will continue to follow.
Vancomycin Follow UP
- -
Patient Age: 59
Patient Sex: Male
Vancomycin Day #: 3
Indication: Bacteremia
Requesting Provider: Pricilla
Pertinent Antimicrobial Allergies:
nkda
Height / Weight:
Height 6 ft 1 in
Actual Weight 93.395 kg
IBW in k
Adjusted BW in k.3
Pertinent Past Medical History: Type 2 Diabetes; 100lb weight loss over last year; ED
- Vital Signs / Lab Results
Temp Pulse Resp BP Pulse Ox
98.6 F 84 17 114/91 98
11/02/24 07:27 11/02/24 07:27 11/02/24 07:27 11/02/24 07:27 11/02/24 07:27
Lab Results - Hematology
10/31/24 11/01/24 11/02/24
08:14 07:29 05:46
WBC 6.3 6.8 6.1
Lab Results - Chemistry
10/31/24 11/01/24 11/02/24
08:14 07:29 05:46
BUN 13 11 10
Creatinine 0.5 L 0.5 L 0.5 L
Estimated Creat Clear > 125 > 125 > 125
Microbiology Results
10/31/24 08:14 Blood Culture - Preliminary
Blood/Venous No Growth in 48 hours- Final report to follow
10/30/24 12:13 Blood Culture - Preliminary
Blood/Venous No Growth in 48 hours- Final report to follow
10/28/24 15:43 Blood Culture - Final
Blood/Venous Staphylococcus hominis
Gram Stain - Final
10/28/24 15:43 Blood Culture - Preliminary
Blood/Venous Staphylococcus hominis
Gram Stain - Preliminary
Therapeutic Drug Monitoring
Vancomycin Peak 18.3 ug/ml (18-26) 11/02/24 00:32
Vancomycin Trough 12.0 ug/ml (5-20) 11/02/24 05:46
[2024-11-02] MEDS: TYLENOL 650 MG PO ×2 (10:16→16:18)
[2024-11-02] MEDS: NSS 1000 IV (10:16)
[2024-11-02 11:06] LABS: Glucose - Point of Care 246 mg/dl (70-99)
--- NOTE | 2024-11-02 12:49 | CM ---
Chart reviewed and spring encaser spoke with patient and son at bedside and requested updated physical therapy notes, patient is agreeable to [facility]. Referrals sent through [employer].
Plan; Skilled placement, needs Auth, referrals sent to [facility].
[2024-11-02 15:49] LABS: Glucose - Point of Care 193 mg/dl (70-99)
--- NOTE | 2024-11-02 15:53 | W.PN.ID1 ---
Date of Service
Date of Service: November 02, 2024
Today's Communication
- if CT chest nonrevealing could stop antibiotics tomorrow, and plan repeat blood cultures x2 in two weeks and follow up with me in 3 weeks
Assessment / Plan
CONS Bacteremia, ox sensitive S hominis
DKA - resolved
- repeat blood cultures x2 are in progress, note that patient had previous exposure to vancomycin and ceftriaxone before repeat cultures were done
- TTE - no vegetation
- Xrays of T spine (thoracic spinal hardwear placement), and abdomen - possible fluid in the mediastinum
- CT chest with IV contrast now
- c/w vancomycin for today while awaiting CT chest
- if CT chest nonrevealing could stop antibiotics tomorrow, and plan repeat blood cultures x2 in two weeks and follow up with me in 3 weeks
Unintentional Weight Loss
- possibly related to uncontrolled DM2
- would ensure he is up to date on routine cancer screenings outpatient
- t spot - no definite exposure history, but has spent time in developing nations - pending
- he was tested for HIV after his last sexual partner and it was negative
- note pulmonary recommendation of ct a/p, could be done outpatient, final decisions per IM service
Right Calf Pain
- do not appreciate any fluctuance or sings of myositis
- defer workup to IM service
Reemphasized to patient the need for compliance with diabetic medications and follow up with a PCP
Chief Complaint
-: Bacteremia (CONS)
Subjective / Review of Systems
afebrile
bp stable
no chest pains
no history of cabg
Vital Signs / Physical Exam
Vital Signs
Vital Signs
Temp Pulse Resp BP Pulse Ox
99 F 94 20 122/70 97
11/02/24 15:28 11/02/24 15:28 11/02/24 15:28 11/02/24 15:28 11/02/24 15:28
Physical Exam
Constitutional: No Acute Distress
Cardiovascular: Regular Rate and S1/S2; Negative Murmur or Rub
Pulmonary: Clear and Symmetric; Negative Wheezes or Rales
Gastrointestinal: Soft, Non Tender, Non Distended and Normal Bowel Sounds
Skin: Warm and Dry; Negative Rash or Jaundice
Objective Data
Lab Data
Lab Results
11/02/24 05:46
11/02/24 05:46
PT 14.6 Sec (11.4-14.6) 10/29/24 04:19
INR 1.09 10/29/24 04:19
APTT 24.6 Sec (23.4-35.0) 10/29/24 04:19
Estimated Creat Clear > 125 ml/min 11/02/24 05:46
Lactic Acid 0.8 mmol/L (0.7-2.0) 10/29/24 11:55
Total Bilirubin 0.5 mg/dl (0.2-1.3) 10/28/24 14:50
AST 18 U/L (17-59) 10/28/24 14:50
ALT 18 U/L (0-50) 10/28/24 14:50
Alkaline Phosphatase 83 U/L (38-126) 10/28/24 14:50
Most recent labs reviewed.
Micro Results:
10/30/24 12:13 Blood Culture - Preliminary
Blood/Venous No Growth in 72 hours- Final report to follow
10/31/24 08:14 Blood Culture - Preliminary
Blood/Venous No Growth in 48 hours- Final report to follow
10/28/24 15:43 Blood Culture - Final
Blood/Venous Staphylococcus hominis
Gram Stain - Final
10/28/24 15:43 Blood Culture - Preliminary
Blood/Venous Staphylococcus hominis
Gram Stain - Preliminary
[2024-11-02] MEDS: NOVOLOG FLEXPEN-LOW RESISTANCE 1 UNITS SC (16:09)
[2024-11-02] MEDS: NOVOLOG MIX 70/30 FLEXPEN 22 UNITS SC (16:09)
[2024-11-02] MEDS: LOVENOX 40 MG SC (17:23)
--- NOTE | 2024-11-02 17:52 | W.PN.UPDATE ---
Update Note
Progress Note Update
Seen and examined by me independently in collaboration with the senior medical writer.
Lab data and imaging data reviewed.
Addendum as below :
DKA resolved. Patient is committed to medication compliance. He does have a bilateral lower extremity numbness suspicious for diabetic neuropathy. His hemoglobin A1c is 14.4.
Staphylococcus hominis bacteremia unclear if contamination or true infection-continue with antibiotics per ID
Patient complains of right lateral thigh and the anterior thigh area. Some localized tenderness in the greater trochanteric area. Right hip joint movements are painless. Unclear if this is greater trochanteric bursitis or lateral cutaneous
femoral nerve impingement pain. In view of recurrent falls obtain a right hip x-ray first. Will consult orthopedics inpatient if limiting mobility.
Ongoing symptomatic orthostasis without external renal losses. Note persistent volume deficit now that DKA is resolved. His weight is also up. Check TSH cortisol and start on midodrine and ALICJA stockings. Continue with PT treatments.
--- NOTE | 2024-11-02 18:42 | W.PN.HOSP.TC ---
Today's Communication/Plan
-
Continue vanco
Chest CT and right hip xray pending
Midodrine prn
Check TSh, cortisol
Replete potassium
Assessment / Plan
Assessment / Plan
59-year-old male with type 2 diabetes and medical noncompliance presenting with vomiting, weakness and decreased appetite:
# weakness, decreased appetite, vomiting
- Now resolved
- Continue subcu insulin (70/30 insulin 22 units twice daily) and metformin 500 bid
- HbA1c 14.4
# Orthostatic hypotension
- Possibly due to diabetic autonomic neuropathy
- Midodrine prn
- Compression stockings
- Check TSH, cortisol
# Hypokalemia
- Replete as needed
# Mild hyponatremia
- Follow BMP
# Bacteremia
- BCx x2 positive for Staphylococcus hominis -- resistant to ampicillin, erythromycin, tetracycline
- ID following -- Now switched to Vanco, TTE, Xray spine and abdomen showed no foreign body, possible fluid in mediastinum --> chest CT pending
- Repeat blood culture negative
- Continue Vanco for now
#RLE pain
- No signs of infection, DVT, inflammation on exam. No focal tenderness
- No radiculopathy
- Pain better with tylenol
- Will order right hip xray
# Weight loss
- per patient, unintentional
- Patient will need to follow-up with PCP after discharge
- ID following --> t spot pending, outpt f/u with PCP for routine cancer screenings
# Head trauma
- CT head and neck negative for any acute abnormalities
DVT prophylaaxis
Heparin Subcu
Code status
Full code
Anticipated Discharge: 24 - 48 hours
Subjective/Interval History
-
Date of Service: November 02, 2024
Objective Data
-
Vital Signs:
Vital Signs
Temp Pulse Resp BP Pulse Ox
99 F 90 18 120/70 97
11/02/24 18:30 11/02/24 18:30 11/02/24 18:30 11/02/24 18:30 11/02/24 18:30
I&O
11/01/24 11/02/24 11/03/24
06:59 06:59 06:59
Intake Total 400 / 400 2320 / 2320 600 / 600
Output Total 450 / 450 1350 / 1350
Balance -50 / -50 970 / 970 600 / 600
Review of Systems
-
History Source: Patient
Constitutional: Reports No Symptoms
EENT: Reports No Symptoms Reported
Respiratory: Reports No Symptoms
Cardiac: Reports No Symptoms
Abdomen/GI: Reports No Symptoms
Genitourinary: Reports No Symptoms
Musculoskeletal: Reports Other (right hip pain radiating to medial thigh)
Skin: Reports No Symptoms
Neuro: Reports Dizzy and Weakness
Endocrine: Reports No Symptoms
Hematologic / Lymphatic: Reports No Symptoms
Allergy / Immunology: Reports No Symptoms
Physical Exam
-
General: Well Developed, No Apparent Distress, Comfortable and Appears Chronically Ill
HEENT: Normocephalic
Respiratory: Clear to Auscultation
Cardiac: Regular Rhythm and S1/S2
GI: Soft, Nontender, Nondistended and Normal Bowel Sounds
Genito-urinary: No Costovertebral Tender
Musculoskeletal: No Clubbing, No Cyanosis, No Edema and Other (Muscle atrophy of the bilateral lower extremities, no focal tenderness of the right hip)
Skin: Warm
Neuro: Awake, Alert and Oriented
Hematologic / Lymphatic: No Lymphadenopathy
Psych: Calm
[2024-11-02 22:05] LABS: Glucose - Point of Care 140 mg/dl (70-99)
[2024-11-03 01:59] LABS: Quantiferon Mitogen minus NIL 9.98 IU/mL; Quantiferon NIL 0.02 IU/mL; Quantiferon TB Gold Plus Negative (Negative)
[2024-11-03 02:33] VITALS: BP 133/88
[2024-11-03] MEDS: VANCOCIN 200 IV (05:24)
[2024-11-03 07:45] VITALS: BP 146/90
[2024-11-03 07:57] LABS: % Basophils 0.3 % (0-2); % Eosinophils 2.9 % (0-6); % Immature Granulocytes 0.8 % (0-0.5); % Lymphocytes 31.2 % (20.5-51.1); % Monocytes 9.8 % (1.7-9.3); Absolute Eosinophils 0.2 10^3/uL (0-0.7); Absolute Immature Granulocytes 0.1 10^3/uL (0-0.05); Absolute Lymphocytes 2.1 10^3/uL (1.2-3.4); Absolute Monocytes 0.7 10^3/uL (0.1-0.6); Absolute Neutrophils 3.7 10^3/uL (1.4-6.5); Hemoglobin 13.6 g/dL (13.0-18.0); Mean Corp Hgb Conc. 35.8 g/dL (33.0-37.0); Mean Corpuscular Hgb 31.8 pg (27.0-31.0); Mean Corpuscular Volume 88.8 fL (80.0-94.0); Mean Platelet Volume 9.1 fL (7.4-10.4); Nucleated Red Blood Cells % 0 % (-); Platelet Count 222 10^3/uL (130-400); Red Blood Cell Count 4.28 10^6/uL (4.70-6.10); Red Cell Dist. Width 12.7 % (11.5-14.5); White Blood Cell Count 6.6 10^3/uL (4.8-10.8)
[2024-11-03 08:12] LABS: Glucose - Point of Care 203 mg/dl (70-99)
--- NOTE | 2024-11-03 08:16 | PN.DE.MGMTRT ---
Insulin Management
- -
11/03/2024: Diabetes management Follow up
Patient admitted 10/28 with c/o vomiting, unable to keep liquids or solid food down. PMH: HCL, HTN, CAD and T2DM, Found to be in DKA, GAP 38. A1C 14.4%, cr 0.6, eGFR > 60. Pt states he stopped taking his diabetes medication (glimepiride 2 mg BID,
Januvia 100 mg daily)6 to 8 months ago. He states he broke his meter, and requested a new one.
Patient is awake, alert and oriented resting in bed, able to participate in discussion regarding diabetes care.
2/3 Glucose range 140 to 246, requiring 1-2 units of additional corrective insulin, 70/30 dose increased to 22 units BID ( first dose with dinner) with low corrective insulin. Will make no change to 70/30 dose and continue Metformin 500 mg BID.
10/29 Pt and son were provided insulin pen instructions. Patient was not feeling great but son did return demonstration without difficulty. Provided insulin pen instruction sheet with each step for prep and injection technique for reference.
Nursing to reinforce self injection with each insulin administration. Patient states he has not self injected. I spoke with patients nurse requesting patient self inject all insulin.
Will cont to follow
Diabetes History
- -
Type of Diabetes: 2 requiring insulin
Pre-Admission Diabetes Regimen
Lab Results
Hemoglobin A1c 14.4 % (4.0-5.6) H 10/28/24 14:50
Insulin Pump Settings
IP Diabetes Regimen
11/02/24 11/02/24 11/02/24
11:04 15:48 21:52
POC Glucose 246 H 193 H 140 H
11/03/24
08:10
POC Glucose 203 H
Meal type: Breakfast
Amount consumed: 100%
Patient Education
[2024-11-03 08:25] LABS: Blood Urea Nitrogen 10 mg/dl (9-20); Calcium 8.6 mg/dl (8.4-10.2); Carbon Dioxide 30 mmol/L (22-30); Chloride 97 mmol/L (98-107); Estimated Creatinine Clearance > 125 ml/min; Glucose 207 mg/dl (70-99); Potassium 2.9 mmol/L (3.5-5.1); Sodium 133 mmol/L (135-145); eGFR > 60.00
[2024-11-03 08:57] LABS: TSH Reflex To Free T4 1.38 uIU/ml (0.47-4.68)
[2024-11-03] MEDS: NOVOLOG FLEXPEN-LOW RESISTANCE 2 UNITS SC ×2 (09:58→11:30)
[2024-11-03] MEDS: NOVOLOG MIX 70/30 FLEXPEN 22 UNITS SC ×2 (09:59→17:09)
[2024-11-03] MEDS: GLUCOPHAGE 500 MG PO ×2 (10:00→17:12)
[2024-11-03] MEDS: THERAGRAN 1 TABLET PO (10:01)
[2024-11-03] MEDS: TYLENOL 650 MG PO ×2 (10:01→20:59)
--- NOTE | 2024-11-03 10:32 | PHA.VAN.FU ---
Vancomycin Assessment / Plan
- Assessment
Renal Function: Stable
WBC's are: WNL
In the past 24 hrs, patient has been: Afebrile
- Dosing Plan
Adjust Regimen to: Vanc 1500mg Q12H starting at 1800
New Regimen Predicts: AUC (429), Peak (26.3), Trough (11.3)
Based on half (8.6H) and age, will adjust to Q12H interval as concerned patient will have accumulation with Q8H interval
- Monitoring Plan
No level(s) ordered at this time: consider repeat levels in next several days, if continued
- Follow Up
Pharmacy will continue to follow.
Vancomycin Follow UP
- -
Patient Age: 59
Patient Sex: Male
Vancomycin Day #: 5
Indication: Bacteremia
Requesting Provider: Pricilla
Pertinent Antimicrobial Allergies:
NKDA
Height / Weight:
Height 6 ft 1 in
Actual Weight 93.395 kg
IBW in k
Adjusted BW in k.3
Pertinent Past Medical History: DM 2
- Vital Signs / Lab Results
Temp Pulse Resp BP Pulse Ox
98.2 F 88 18 146/90 98
11/03/24 08:30 11/03/24 07:45 11/03/24 07:45 11/03/24 07:45 11/03/24 08:45
Lab Results - Hematology
11/01/24 11/02/24 11/03/24
07:29 05:46 07:30
WBC 6.8 6.1 6.6
Lab Results - Chemistry
11/01/24 11/02/24 11/03/24
07:29 05:46 07:30
BUN 11 10 10
Creatinine 0.5 L 0.5 L 0.5 L
Estimated Creat Clear > 125 > 125 > 125
Microbiology Results
10/31/24 08:14 Blood Culture - Preliminary
Blood/Venous No Growth in 72 hours- Final report to follow
10/30/24 12:13 Blood Culture - Preliminary
Blood/Venous No Growth in 72 hours- Final report to follow
10/28/24 15:43 Blood Culture - Final
Blood/Venous Staphylococcus hominis
Gram Stain - Final
10/28/24 15:43 Blood Culture - Preliminary
Blood/Venous Staphylococcus hominis
Gram Stain - Preliminary
Therapeutic Drug Monitoring
Vancomycin Peak 18.3 ug/ml (18-26) 11/02/24 00:32
Vancomycin Trough 12.0 ug/ml (5-20) 11/02/24 05:46
[2024-11-03 11:23] LABS: Glucose - Point of Care 247 mg/dl (70-99)
[2024-11-03] MEDS: NOVOLOG FLEXPEN-LOW RESISTANCE SC ×2 (11:40→17:10)
[2024-11-03] MEDS: KCL 40 MEQ PO ×2 (11:40→17:08)
--- NOTE | 2024-11-03 12:04 | CM ---
Chart reviewed and referrals sent to [email or web address] who do not have a contracted with patient's insurance. List of skilled options including ratings provided to patient and son.
Per physical therapy recommendation is for skilled placement patient and son to provide additional referrals today.
[2024-11-03 12:08] VITALS: BP 136/89
--- NOTE | 2024-11-03 12:22 | W.PN.HOSP.TC ---
Addendum entered and electronically signed by Logan Tapia MD 11/03/24 16:22:
Seen and examined by me independently in collaboration with the medical assembly.
Lab data and imaging data reviewed.
Addendum as below :
DKA resolved. Patient would like another education session about insulin administration.
Await chest CT to evaluate for any fluid in mediastinaum and further antibiotic dosing based on that. ID following.
Continue with the midodrine for orthostatic hypotension.
Hypokalemia noted unclear if renal losses or secondary to his uncontrolled diabetes and cellular shifts. No diarrhea. Continue with repletion.
Likely DC in a.m. to rehab if stable. Patient likes to go to rehab if possible.
Original Note:
Today's Communication/Plan
-
Patient stable for discharge after K repleted
PT/OT recommends SNF
Continue insulin and metformin
Assessment / Plan
Assessment / Plan
59-year-old male with type 2 diabetes and medical noncompliance presenting with vomiting, weakness and decreased appetite:
# Weakness, decreased appetite, vomiting
- Now resolved
- Continue subcu insulin (70/30 insulin 22 units twice daily) and metformin 500 bid
- HbA1c 14.4
- PT/OT recommends SNF
# Orthostatic hypotension
- Possibly due to diabetic autonomic neuropathy
- Midodrine prn
- Compression stockings
- TSH, cortisol normal
# Hypokalemia
- Replete as needed
# Mild hyponatremia
- Follow BMP
# Bacteremia
- BCx x2 positive for Staphylococcus hominis -- resistant to ampicillin, erythromycin, tetracycline
- ID following -- Now switched to Vanco, TTE, Xray spine and abdomen showed no foreign body, possible fluid in mediastinum --> chest CT: Trace left pleural effusion. Mild coronary artery calcifications. Otherwise unremarkable mediastinum.
- Repeat blood culture negative
- Continue Vanco for now
# RLE pain
- No signs of infection, DVT, inflammation on exam. No focal tenderness
- No radiculopathy
- Pain better with tylenol
- Right hip xray no acute fracture
# Weight loss
- per patient, unintentional
- Patient will need to follow-up with PCP after discharge
- ID following --> tb test negative, outpt f/u with PCP for routine cancer screenings
# Head trauma
- CT head and neck negative for any acute abnormalities
DVT prophylaaxis
Heparin Subcu
Code status
Full code
Anticipated Discharge: Within 24 hours
Subjective/Interval History
-
Date of Service: November 03, 2024
Objective Data
-
Labs:
Laboratory Results
11/03/24
07:30
WBC 6.6
Hgb 13.6
Hct 38.0 L
Plt Count 222
Sodium 133 L
Potassium 2.9 L
Chloride 97 L
Carbon Dioxide 30
BUN 10
Creatinine 0.5 L
Glucose 207 H
Calcium 8.6
Vital Signs:
Vital Signs
Temp Pulse Resp BP Pulse Ox
98.4 F 90 18 136/89 98
11/03/24 12:08 11/03/24 12:08 11/03/24 12:08 11/03/24 12:08 11/03/24 12:08
I&O
11/02/24 11/03/24 11/04/24
06:59 06:59 06:59
Intake Total 2320 / 2320 1600 / 1600
Output Total 1350 / 1350
Balance 970 / 970 1600 / 1600
Review of Systems
-
History Source: Patient
Constitutional: Reports No Symptoms
EENT: Reports No Symptoms Reported
Respiratory: Reports No Symptoms
Cardiac: Reports No Symptoms
Abdomen/GI: Reports No Symptoms
Breast: Reports No Symptoms
Genitourinary: Reports No Symptoms
Musculoskeletal: Reports No Symptoms
Skin: Reports No Symptoms
Neuro: Reports No Symptoms
Endocrine: Reports No Symptoms
Hematologic / Lymphatic: Reports No Symptoms
Allergy / Immunology: Reports No Symptoms
Physical Exam
-
General: Well Developed, Well Nourished, No Apparent Distress and Comfortable
HEENT: Normocephalic
Respiratory: Clear to Auscultation
Cardiac: Regular Rhythm and S1/S2
GI: Soft, Nontender, Nondistended and Normal Bowel Sounds
Genito-urinary: No Costovertebral Tender
Musculoskeletal: No Clubbing, No Cyanosis, No Edema and Other (muscle atrophy)
Skin: Warm
Neuro: Awake, Alert and Oriented
Hematologic / Lymphatic: No Lymphadenopathy
Psych: Calm
[2024-11-03 15:00] VITALS: BP 117/66
--- NOTE | 2024-11-03 16:27 | W.PN.ID1 ---
Date of Service
Date of Service: November 03, 2024
Today's Communication
- stopped antibiotics, and plan repeat blood cultures x2 in two weeks and follow up with me in 3 weeks
Assessment / Plan
CONS Bacteremia, ox sensitive S hominis
DKA - resolved
- repeat blood cultures x2 are in progress, note that patient had previous exposure to vancomycin and ceftriaxone before repeat cultures were done
- TTE - no vegetation
- Xrays of T spine (thoracic spinal hardwear placement), and abdomen - possible fluid in the mediastinum
- CT chest with IV contrast normal mediastinum
- c/w vancomycin for today while awaiting CT chest
- stopped antibiotics, and plan repeat blood cultures x2 in two weeks and follow up with me in 3 weeks
Unintentional Weight Loss
- possibly related to uncontrolled DM2
- would ensure he is up to date on routine cancer screenings outpatient
- t spot - negative
- he was tested for HIV after his last sexual partner and it was negative
- note pulmonary recommendation of ct a/p, could be done outpatient, final decisions per IM service
Right Calf Pain
- do not appreciate any fluctuance or sings of myositis
- defer workup to IM service
Reemphasized to patient the need for compliance with diabetic medications and follow up with a PCP
Chief Complaint
-: Bacteremia (CONS)
Subjective / Review of Systems
afebrile
bp stable
no complaints
asking to discharge
Vital Signs / Physical Exam
Vital Signs
Vital Signs
Temp Pulse Resp BP Pulse Ox
99.3 F 89 18 117/66 95
11/03/24 15:00 11/03/24 15:00 11/03/24 15:00 11/03/24 15:00 11/03/24 15:00
Physical Exam
Constitutional: No Acute Distress and Chronically Ill
Cardiovascular: Regular Rate and S1/S2; Negative Murmur or Rub
Pulmonary: Clear and Symmetric; Negative Wheezes or Rales
Gastrointestinal: Soft, Non Tender, Non Distended and Normal Bowel Sounds
Skin: Warm and Dry; Negative Rash or Jaundice
Objective Data
Lab Data
Lab Results
11/03/24 07:30
11/03/24 07:30
PT 14.6 Sec (11.4-14.6) 10/29/24 04:19
INR 1.09 10/29/24 04:19
APTT 24.6 Sec (23.4-35.0) 10/29/24 04:19
Estimated Creat Clear > 125 ml/min 11/03/24 07:30
Lactic Acid 0.8 mmol/L (0.7-2.0) 10/29/24 11:55
Total Bilirubin 0.5 mg/dl (0.2-1.3) 10/28/24 14:50
AST 18 U/L (17-59) 10/28/24 14:50
ALT 18 U/L (0-50) 10/28/24 14:50
Alkaline Phosphatase 83 U/L (38-126) 10/28/24 14:50
Most recent labs reviewed.
Micro Results:
10/30/24 12:13 Blood Culture - Preliminary
Blood/Venous No Growth in 4 days- Final report to follow
10/31/24 08:14 Blood Culture - Preliminary
Blood/Venous No Growth in 72 hours- Final report to follow
10/28/24 15:43 Blood Culture - Final
Blood/Venous Staphylococcus hominis
Gram Stain - Final
10/28/24 15:43 Blood Culture - Preliminary
Blood/Venous Staphylococcus hominis
Gram Stain - Preliminary
Care Review
Plan reviewed with: Physician (Dr Tapia - prasannao)
[2024-11-03 17:05] LABS: Glucose - Point of Care 149 mg/dl (70-99)
[2024-11-03] MEDS: LACTAID 1 CAPSULE PO (17:12)
[2024-11-03] MEDS: LOVENOX 40 MG SC (17:14)
[2024-11-03 19:15] VITALS: BP 125/83; BP 125/86; BP 92/65; BP 93/70; PULSE 107; PULSE 86; PULSE 88
[2024-11-03 21:46] LABS: Glucose - Point of Care 64 mg/dl (70-99)
[2024-11-03 22:20] LABS: Glucose - Point of Care 60 mg/dl (70-99)
[2024-11-03 22:55] LABS: Glucose - Point of Care 80 mg/dl (70-99)
[2024-11-03 23:15] VITALS: BP 110/72
[2024-11-04 01:00] LABS: Glucose - Point of Care 128 mg/dl (70-99)
[2024-11-04 02:56] LABS: Glucose - Point of Care 153 mg/dl (70-99)
[2024-11-04 03:05] VITALS: BP 123/75
[2024-11-04 07:00] VITALS: BP 112/67; BP 148/89; PULSE 113; PULSE 84
--- NOTE | 2024-11-04 07:59 | PN.DE.MGMTRT ---
Insulin Management
- -
11/04/2024: Diabetes management Follow up
Patient admitted 10/28 with c/o vomiting, unable to keep liquids or solid food down. PMH: HCL, HTN, CAD and T2DM, Found to be in DKA, GAP 38. A1C 14.4%, cr 0.6, eGFR > 60. Pt states he stopped taking his diabetes medication (glimepiride 2 mg BID,
Januvia 100 mg daily)6 to 8 months ago. He states he broke his meter, and requested a new one.
Patient is awake, alert and oriented resting in bed, able to participate in discussion regarding diabetes care.
2/ Glucose range 149 to 247, with one episode of glucose 60 @ ~ 10pm, treated then up to 80. 3AM glucose 153. Will continue Metformin 500 mg BID, AM 70/30 dose 22 units, decrease dinner dose at 5pm to 20 units with low corrective insulin.
10/29 Pt and son were provided insulin pen instructions. Patient was not feeling great but son did return demonstration without difficulty. Provided insulin pen instruction sheet with each step for prep and injection technique for reference.
11/03 Nursing to reinforce self injection with each insulin administration. Nurse reports patient did well with self injections, Patient states he feels more confident. Discussed with nurse.
Will cont to follow
Diabetes History
- -
Type of Diabetes: 2 requiring insulin
Pre-Admission Diabetes Regimen
11/03/24
07:30
Creatinine 0.5 L
Lab Results
Hemoglobin A1c 14.4 % (4.0-5.6) H 10/28/24 14:50
Insulin Pump Settings
IP Diabetes Regimen
11/03/24 11/03/24 11/03/24
07:30 08:10 11:21
Glucose 207 H
POC Glucose 203 H 247 H
11/03/24 11/03/24 11/03/24
17:04 21:44 22:18
Glucose
POC Glucose 149 H 64 L 60 L
11/03/24 11/04/24 11/04/24
22:53 00:59 02:54
Glucose
POC Glucose 80 128 H 153 H
Patient Education
[2024-11-04 08:06] LABS: Glucose - Point of Care 186 mg/dl (70-99)
[2024-11-04 08:16] LABS: Hematocrit 38.5 % (39.0-52.0); Hemoglobin 13.7 g/dL (13.0-18.0); Mean Corp Hgb Conc. 35.6 g/dL (33.0-37.0); Mean Corpuscular Hgb 31.3 pg (27.0-31.0); Mean Corpuscular Volume 87.9 fL (80.0-94.0); Mean Platelet Volume 9.4 fL (7.4-10.4); Platelet Count 248 10^3/uL (130-400); Red Blood Cell Count 4.38 10^6/uL (4.70-6.10); Red Cell Dist. Width 12.6 % (11.5-14.5)
--- NOTE | 2024-11-04 08:24 | W.PN.HOSP.TC ---
Today's Communication/Plan
-
Discharge today
Continue insulin 70/30 twice daily and metformin twice daily
Midodrine at discharge
Outpt follow up with ID and Diabetes management team
Assessment / Plan
Assessment / Plan
59-year-old male with type 2 diabetes and medical noncompliance presenting with vomiting, weakness and decreased appetite:
# Weakness, decreased appetite, vomiting
- Now resolved
- Continue subcu insulin (70/30 insulin twice daily) and metformin 500 bid
- HbA1c 14.4
- PT/OT recommends Home Health
# Orthostatic hypotension
- Possibly due to diabetic autonomic neuropathy
- Midodrine at discharge
- Compression stockings
- TSH, cortisol normal
# Hypoglycemia
- Patient became hypoglycemic last night (Glu 60)
- Will adjust evening insulin to 18 U
# Hypokalemia
- Replete as needed
# Mild hyponatremia
- Follow BMP
# Bacteremia
- BCx x2 positive for Staphylococcus hominis -- resistant to ampicillin, erythromycin, tetracycline
- ID following -- Now switched to Vanco, TTE, Xray spine and abdomen showed no foreign body, possible fluid in mediastinum --> chest CT: Trace left pleural effusion. Mild coronary artery calcifications. Otherwise unremarkable mediastinum.
- Vancomycin stopped
- Repeat BC x2 in 2 weeks and outpt follow-up with Dr. Pleitez in 3 weeks
- Repeat blood culture negative
- Continue Vanco for now
# RLE pain
- No signs of infection, DVT, inflammation on exam. No focal tenderness
- No radiculopathy
- Pain better with tylenol
- Right hip xray no acute fracture
# Weight loss
- per patient, unintentional
- Patient will need to follow-up with PCP after discharge
- ID following --> tb test negative, outpt f/u with PCP for routine cancer screenings
# Head trauma
- CT head and neck negative for any acute abnormalities
DVT prophylaaxis
Heparin Subcu
Code status
Full code
Anticipated Discharge: Today
Subjective/Interval History
-
Date of Service: November 04, 2024
Objective Data
-
Labs:
Laboratory Results
11/04/24
07:34
WBC 6.0
Hgb 13.7
Hct 38.5 L
Plt Count 248
Sodium Pending
Potassium Pending
Chloride Pending
Carbon Dioxide Pending
BUN Pending
Creatinine Pending
Glucose Pending
Calcium Pending
Vital Signs:
Vital Signs
Temp Pulse Resp BP Pulse Ox
98.2 F 78 16 123/75 98
11/04/24 03:05 11/04/24 03:05 11/04/24 03:05 11/04/24 03:05 11/04/24 03:05
I&O
11/03/24 11/04/24 11/05/24
06:59 06:59 06:59
Intake Total 1600 / 1600 720 / 720
Balance 1600 / 1600 720 / 720
[2024-11-04] MEDS: NOVOLOG FLEXPEN-LOW RESISTANCE 1 UNITS SC ×2 (08:39→11:51)
[2024-11-04] MEDS: GLUCOPHAGE 500 MG PO (08:40)
[2024-11-04] MEDS: THERAGRAN 1 TABLET PO (08:40)
[2024-11-04] MEDS: LACTAID 1 CAPSULE PO ×2 (08:40→12:00)
[2024-11-04] MEDS: NOVOLOG MIX 70/30 FLEXPEN 22 UNITS SC (08:40)
[2024-11-04] MEDS: TYLENOL 650 MG PO (08:41)
[2024-11-04 08:52] LABS: Blood Urea Nitrogen 10 mg/dl (9-20); Calcium 9.2 mg/dl (8.4-10.2); Carbon Dioxide 30 mmol/L (22-30); Chloride 96 mmol/L (98-107); Estimated Creatinine Clearance > 125 ml/min; Glucose 176 mg/dl (70-99); Potassium 3.4 mmol/L (3.5-5.1); Sodium 132 mmol/L (135-145); eGFR > 60.00
--- NOTE | 2024-11-04 10:45 | CM ---
Chart reviewed and patient was seen again today by physical therapy and recommendation is for home with home senior care PT, bilingual patient support caseworker met with patient and reviewed visiting nurse options and patient has selected [facility], [facility]N liaison notified.
Plan; Home with [facility].
[2024-11-04 11:00] VITALS: BP 129/86
[2024-11-04 11:22] LABS: Glucose - Point of Care 186 mg/dl (70-99)
--- NOTE | 2024-11-04 12:27 | VNURNOTE ---
Welder Fitter Arc met with patient to discuss [facility] nurse/therapy, visits, schedule and homebound status. Patient is agreeable and understands that visits at home will be 2-3 x per week to assess and teach medical management.
[facility] brochure provided with contact information. Patient is aware that [facility] will contact them for start of care in 1-2 days after discharge from .
Patient had concerns about copay with home care. Reviewed with patient, Per [facility] office patient is covered at 80%
Patient responsibility- $25.60 per nursing visit, $19.60 per PT/OT visit, and $24.80 per TREASURER visit.
Plan Deductible- $1500, has met $243.90 to date.
Max Out of Pocket- $7500, has met $243.60 to date.
Patient stated he is ok with copay. Advised patient to contact [facility] business office if he would like to set up a payment plan. Patient verbalizes understanding.
[facility] referral completed in [facility].
[2024-11-04] MEDS: KCL 40 MEQ PO (12:53)
--- NOTE | 2024-11-04 15:37 | W.PN.UPDATE ---
Update Note
Progress Note Update
Seen and examined by me independently in collaboration with the medical appointment scheduler.
Lab data and imaging data reviewed.
Addendum as below :
Resolved ED. Patient confident doing insulin at home and doing Accu-Cheks. He had 1 low blood sugars last evening. Decrease the predinner dose of 7030.
Patient advised to keep a log of blood sugars and follow-up with PCP or diabetic nurse practitioner.
CT chest showed no evidence of fluid collection. Antibiotics discontinued.
Ortho static hypotension noted but patient is less symptomatic now. Continue with midodrine and precaution.
Patient advised compliance with diabetic treatments and follow-up with PCP.
Total time of discharge 32 minutes
--- NOTE | 2024-11-04 18:12 | W.DCSUMMARY ---
Discharge Summary
Discharge Data
Date of Admission: 10/28/24
Date of Discharge: 11/04/24
-
Pending Results: No
Hospital Course
Discharging Physician : Dr. Logan Tapia, Dr. Su Freed
Disposition : Home with home health
Principal Discharge diagnosis :
Diabetic ketoacidosis
Bacteremia with coagulase-negative staph
Orthostatic hypotension
Hypokalemia
Acute kidney injury
Unintentional weight loss
Chronic Discharge diagnosis :
Diabetes type 2
Hospital Course :
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 Patient had been noncompliant with his diabetes medications (Januvia and
glimepiride) since March last year. On presentation patient Kussmaul breathing, blood glucose was 650, UA showed ketones 3+ glucose 4+. VBG consistent with metabolic acidosis. White count is more elevated at 17,000. Patient was SIRS positive
however did not appear septic and no source of infection was found. DKA management was initiated and patient was transferred to the ICU. Over the next 24 hours patient's DKA resolved and he was transitioned to subcutaneous insulin. HbA1c was 14.4
consistent with diagnosis of DKA. Diabetes management team were on board. Started patient on insulin 70/30 and metformin twice daily. Blood cultures came back positive for coagulase-negative staph. ID was consulted and extensive workup was
performed. Antibiotic treatment was started with ceftriaxone and later switched to vancomycin. Repeat blood cultures were negative, patient was not septic, antibiotics were stopped. During hospital stay, patient was found to have orthostatic
hypotension. IV fluid were started with midodrine as needed. Patient was still feeling dizzy after standing up. Advised patient to use compression stockings. This could be due to diabetes autonomic dysfunction. Patient was also hypokalemic this
admission and potassium was repleted. Workup for right hip pain was performed, hip x-ray revealed no acute fractures. Patient's son also reported unintentional weight loss of over 100 pounds within the last year. Patient was advised to follow-up
outpatient for routine cancer screenings. TB tests were negative. However, this is not unexpected with controlled diabetes.
At time of discharge, patient is medically stable for discharge to home with home health on insulin 70/30 twice daily (22 units morning and 18 units evening), metformin twice daily, midodrine 2.5 twice daily. Patient will need to follow-up with
diabetes management team for adjusting diabetes medications. Will also need to repeat blood cultures in 2 weeks after discharge and follow-up with infectious disease in 3 weeks.
Important imaging findings :
Head CT negative for acute intracranial abnormalities
Right hip x-ray: No acute fracture or dislocation. Mild degenerative changes of the right hip.
Chest CT: Trace left pleural effusion, mild coronary artery calcifications.
Thoracic spine x-ray: Widened superior mediastinum possibly projectional.
Abdomen x-ray: No evidence of foreign body. Postsurgical changes in the left pelvis.
Discharge Plan
-
Patient Disposition: Home with Home Care
Discharge Diagnosis/Procedures: Diabetic ketoacidosis, orthostatic hypotension, acute kidney injury, weight loss, hypokalemia, diabetes
Condition: Fair
Diet: Diabetic, Carb Controlled
Activity: As tolerated
Driving Restrictions: Not until seen by your Dr
Bathing Restrictions: OK to Shower
Blood Work: Blood culture x2 in two weeks
Other Services: VN, PT and OT
Referrals:
Edy Grimaldo DO [Family Provider] - in less than 1 week
Magali Patel NP [Specified Professional Personl] - in one to two weeks (Call her if you have low blood sugars <70 )
Emilia Pleitez MD [Active] - in three to four weeks
Additional Discharge Medication Instructions: You should check your glucose before breakfast and before dinner every day before injecting insulin.
You should follow-up with the diabetes management team or your PCP for controlling your blood sugars within one to two weeks.
You will need to repeat blood cultures in two weeks and follow up with Dr. Pleitez in 3 weeks.
Prescriptions:
New
glucagon HCl 1 mg/mL Recon Soln
1 mg IM PRN PRN (Reason: hypoglycemia) Qty: 1 0RF
metformin 500 mg Tablet
500 mg PO BID@0800,1700 Qty: 60 0RF
insulin asp prt-insulin aspart 100 unit/mL (70-30) Insulin Pen
22 unit SC DAILY@0800 Qty: 15 0RF
insulin asp prt-insulin aspart 100 unit/mL (70-30) Insulin Pen
18 unit SC DAILY@1700 Qty: 15 0RF
midodrine 2.5 mg tablet
2.5 mg PO BID Qty: 30 0RF
Rx Instructions:
When upright, avoid <4 hours before bedtime
Continued
therapeutic multivitamin Tablet
1 tab PO DAILY
Medical Marijuana
2 gummy PO DAILYPRN PRN (Reason: shakes)
Discontinued
glimepiride 2 mg Tablet
2 mg PO BID
Januvia 50 mg Tablet
100 mg PO DAILY
Patient Comments:
does not know dose
Discharge Orders:
Discharge Patient (As Directed); Ordered 11/04/24
Ordered By: Su Olguin
Discharge Date and Time
Discharge Date/Time: 11/04/24 15:04
Print Language: ARABIC
== END 2024-11-04 15:04 | disposition home health service (06) | DRG 638 ==
LOC: 4 WEST ACU 18:26
PROVIDERS: Nurse Practitioner Family; Physician Assistant; ADMITTING PHYSICIAN Internal Medicine; ATTENDING PHYSICIAN Internal Medicine; CONSULT PHYSICIAN Internal Medicine Critical Care Medicine; CONSULT PHYSICIAN Student in an Organized Health Care Education/Training Program; EMERGENCY PHYSICIAN Emergency Medicine; FAMILY PHYSICIAN Family Medicine
PROC: 5A09357 Assistance with Respiratory Ventilation, Less than 24 Consecutive Hours, Continuous Positive Airway Pressure (ICD-10-PCS; 2024-10-28)
DX: E11.10 Type 2 diabetes mellitus with ketoacidosis without coma (principal); E87.1 Hypo-osmolality and hyponatremia; N17.9 Acute kidney failure, unspecified; R78.81 Bacteremia; R65.10 Systemic inflammatory response syndrome (SIRS) of non-infectious origin without acute organ dysfunction; Z16.11 Resistance to penicillins; Z16.29 Resistance to other single specified antibiotic; I95.1 Orthostatic hypotension; E87.6 Hypokalemia; Z79.84 Long term (current) use of oral hypoglycemic drugs; E86.0 Dehydration; Z91.141 Patient's other noncompliance with medication regimen due to financial hardship; I25.10 Atherosclerotic heart disease of native coronary artery without angina pectoris; Z91.81 History of falling; G47.33 Obstructive sleep apnea (adult) (pediatric); D72.829 Elevated white blood cell count, unspecified; E11.43 Type 2 diabetes mellitus with diabetic autonomic (poly)neuropathy; B95.7 Other staphylococcus as the cause of diseases classified elsewhere
CPT/HCPCS: 70450; 71045; 71260; 72070; 72125; 73502; 74019; 80048; 80053; 80202; 81003; 81015; 82010; 82533; 82805; 82962; 83036; 83605; 83690; 83735; 84100; 84443; 84484; 85025; 85027; 85610; 85730; 86480; 87040; 87147; 87150; 87186; 87205; 93005; 93306; 94660; 96361; 96365; 96366; 96375; 97163; 97167; 97530; 99291; Q9967

== ENCOUNTER 2025-05-25 18:13 | Inpatient (IN) | payer OTHER, SELFPAY ==
[2025-05-24] VITALS (11 sets, daily range): BP systolic 93–192; BP diastolic 67–121; PULSE 76–102; BMI 29.8
--- NOTE | 2025-05-24 14:22 | ED.GENMED ---
History of Present Illness
General
Chief Complaint: Fall
Source: patient
Exam Limitations: none
Time Seen by Provider: 05/24/25 13:34
History of Present Illness
History of Present Illness:
59-year-old male presents complaining of multiple falls recently and weakness. He is an insulin-dependent diabetic. He has been following for quite some time but the falls have increased in frequency and severity. He remembers waking up on the
floor after the falls. Most recently he fell yesterday. He was 'unconscious 'after the fall until his son woke him up. He has been seen by a neurologist for the falls in the past and MRI of his brain was ordered which was negative. He also notes
he has had lower blood pressure. He was seen by the family doctor today and sent here for further evaluation. No recent illness. He does note a head strike with recent fall.
Past History
Past History
ED Past Medical History: NIDDM
ED Past Surgical History: Other (Recent hernia surgery)
Social History
Tobacco: Non-smoker
Alcohol: Occasional
Drug: None
Personal:
Living: with family
Employment: Employed
Family History
Family History: Other (Noncontributory)
Phy Exam
Physical Exam
Physical Exam:
General: Well-appearing male no acute respiratory distress
HEENT: Normocephalic resolving ecchymosis to the left temporal region. Pupils equal round reactive to light
Heart: Regular rate and rhythm
Lungs: Clear no wheeze
Neurologic exam: Alert and oriented no drift on exam finger-nose intact conversing appropriately dysarthria or aphasia
Extremities: No cyanosis or edema
Course
Orders/Labs/Results
Orders:
Orders
05/24/25 14:10
Orthostatic VS- Treatment ONCE
05/24/25 14:11
CT Head W/o Iv Contrast Urgent
Comment:
Reason For Exam: falls
05/24/25 14:26
Complete Blood Count/With Diff Urgent
Comprehensive Metabolic Panel Urgent
TSH Reflex To Free T4 Urgent
05/24/25 14:40
Crisis Consult Urgent
Reason for Consult: si
05/24/25 15:03
0.9% Sodium Chloride 1000 ml [Nss] 1,000 ml IV BOLUS
Abnormal Lab Results
05/24/25
14:26
RBC 4.54 L 10^6/uL
(4.70-6.10)
Eosinophils % 7.0 H %
(0-6)
Sodium 134 L mmol/L
(135-145)
BUN 22 H mg/dl
(9-20)
Creatinine 0.6 L mg/dL
(0.7-1.3)
Glucose 196 H mg/dl
(70-99)
05/24/25 14:26
05/24/25 14:26
Vital Signs
Initial and Last Documented VS:
Initial Vital Signs
Temp Pulse Resp BP Pulse Ox
98.2 F 101 18 108/76 99
05/24/25 11:24 05/24/25 11:24 05/24/25 11:24 05/24/25 11:24 05/24/25 11:24
Last Documented Vital Signs
Temp Pulse Resp BP Pulse Ox
98.2 F 78 14 115/73 97
05/24/25 11:24 05/24/25 17:30 05/24/25 17:30 05/24/25 15:00 05/24/25 17:30
MDM/Problems Addressed
Differential Diagnosis Includes:
Patient complains of lightheadedness at times, dizziness and frequent falls. Etiology somewhat unclear. Question possible orthostatic hypotension versus neuropathy versus ambulatory dysfunction. He has had MRIs of his brain that do not show
lesions to suggest MS. Will check CT of head today to see signs of trauma. Check labs and orthostatic vital signs
*Pulse Oximetry
SaO2: 99
Oxygen Mode of Delivery: Room air
Patient hypoxic: no
*Critical Care Note
Total Time (30-74mins, 75-104mins- exclusive of procedures): Not Applicable
Update Note
Update Note:
CT head shows no acute traumatic injury. Patient dropped his blood pressure significantly even upon sitting and he was symptomatic with this. Suspect orthostatic hypotension as one of the causes of his falls recently. Fluids ordered. Given the
multiple falls and persistent hypotension upon sitting, will admit to hospital for further evaluation
ED Attending Note
-
Portions of this chart may have been created with voice recognition software.� Occasional wrong word or��sound alike� substitutions may have occurred due to the inherent limitations of voice recognition software.
Discharge Plan
Departure
Patient Disposition: Admit
Date of Disposition: 05/24/25
Time of Disposition: 17:54
Presentation/result/management discussed w/ accepting MD/DO: Hospitalist
Discharge Problem:
Orthostatic hypotension
Prescriptions:
No Action
therapeutic multivitamin Tablet
1 tab PO DAILY
Medical Marijuana
2 gummy PO DAILYPRN PRN (Reason: shakes)
glucagon HCl 1 mg/mL Recon Soln
1 mg IM PRN PRN (Reason: hypoglycemia) Qty: 1 0RF
metformin 500 mg Tablet
500 mg PO BID@0800,1700 Qty: 60 0RF
insulin asp prt-insulin aspart 100 unit/mL (70-30) Insulin Pen
22 unit SC DAILY@0800 Qty: 15 0RF
insulin asp prt-insulin aspart 100 unit/mL (70-30) Insulin Pen
18 unit SC DAILY@1700 Qty: 15 0RF
midodrine 2.5 mg tablet
2.5 mg PO BID Qty: 30 0RF
Rx Instructions:
When upright, avoid <4 hours before bedtime
Referrals:
Edy Grimaldo DO [Family Provider, Family Practice]
Interventions
Interventions:
*Risk Screen - Suicide Last Done: 05/24/25 14:41
*General Assessment Last Done: 05/24/25 12:51
*Neglect/Abuse Screening Last Done: 05/24/25 11:24
*ED- Fall Risk Assessment Last Done: 05/24/25 12:51
*ED COVID-19 Vaccine History Last Done: 05/24/25 12:51
ED-Musculoskeletal Assessment Last Done: 05/24/25 12:51
ED- Neurological Assessment Last Done: 05/24/25 12:51
ED-Skin Assessment Last Done: 05/24/25 12:51
Discharge Date and Time
Print Language: SLOVENIAN
--- NOTE | 2025-05-24 14:36 | EDRN ---
During orthostatic vitals, pt suddenly became dizzy while standing and needed to sit down. Unable to obtain standing portion of orthostatic testing at this time.
[2025-05-24 15:01] LABS: Hematocrit 40.4 % (39.0-52.0); Hemoglobin 13.9 g/dL (13.0-18.0); Mean Corp Hgb Conc. 34.4 g/dL (33.0-37.0); Mean Corpuscular Volume 89.0 fL (80.0-94.0); Nucleated Red Blood Cells % 0 % (-); Platelet Count 232 10^3/uL (130-400); Red Cell Dist. Width 13.2 % (11.5-14.5)
[2025-05-24] MEDS: NSS 1000 IV (15:14)
[2025-05-24 15:16] LABS: ALT (SGPT) 16 U/L (0-50); AST (SGOT) 21 U/L (17-59); Albumin 3.8 g/dl (3.5-5.0); Alkaline Phosphatase 115 U/L (38-126); Blood Urea Nitrogen 22 mg/dl (9-20); Calcium 8.9 mg/dl (8.4-10.2); Carbon Dioxide 25 mmol/L (22-30); Chloride 102 mmol/L (98-107); Estimated Creatinine Clearance > 125 ml/min; Glucose 196 mg/dl (70-99); Potassium 4.3 mmol/L (3.5-5.1); Sodium 134 mmol/L (135-145); Total Protein 6.7 g/dl (6.3-8.2); eGFR > 60.00
--- NOTE | 2025-05-24 18:05 | HPS.HSE ---
Addendum entered and electronically signed by Michael Perera MD 05/24/25 20:33:
This is an addendum to H&P written by Radha Hylton on 05/24/2025. �Patient seen and examined independent with CITIZEN PARTICIPATION SPECIALIST.
59-year-old male past medical history of orthostatic hypotension, type 2 diabetes, obesity, diabetic neuropathy, chronic ambulatory dysfunction, lactose intolerance, presenting with has ongoing dizziness and syncopal episodes resulting in falls.
�Recently had MRI brain which was read negative. �Stopped taking 2.5 mg as needed midodrine in December because it was not helping him. Also he has been having chronic diarrhea and he recently saw GI and had colonoscopy reports pending.
Vital signs show normal vitals apart from mild initial tachycardia.
Labs unremarkable.
CT head shows prominence of the supraclinoid portion of the right internal carotid artery which may be due to tortuosity and diffuse ectasia.
Patient with recurrent orthostatic hypotension and syncope secondary to hypovolemia from chronic diarrhea and autonomic dysfunction secondary to diabetes resulting in falls. �1 L IV fluids given. �Resume midodrine 5 mg twice daily. Can consider
switching to fludrocortisone if patient resistant to take midodrine. Check orthostatics daily. Outpatient GI follow-up for the diarrhea.
Original Note:
Family Physician
-
Family Physician: Edy Grimaldo
Chief Complaint
-
Falls, hypotension
History of Present Illness
59-year-old male with reported multiple falls. He remembers falling as most recent as yesterday. He reports being unconscious and his son woke him up. He did have follow-up with neurology prior for falls had MRI of his brain which was reportedly
negative. He does have history of orthostatic hypotension however he does not believe that the midodrine was helping him. He was taking 5 mg twice daily as needed but stopped taking it in December. He reports he is combination of cane, rollator,
wheelchair when he feels dizzy with walking. He has severe neuropathy to bilateral hands to the point where he keeps them bent however they are not contracted I encouraged patient he needs to open his hands or they will become contracted. He has
severe neuropathy in bilateral feet
He has a medical history orthostatic hypotension DM2 with history of DKA October 2024, class I obesity, neuropathy hands and feet
Medical History
Past Medical History
Past Medical History: Reports Other
Additional Past Medical History:
orthostatic hypotension
DM2 with history of DKA October 2024
class I obesity
neuropathy hands and feet
Past Surgical History: Reports Other
Additional Past Surgical History:
Appendectomy
Hernia repair x 6
Spinal fusion
Social History
Tobacco: Non-smoker
Alcohol: None
Drug: Marijuana
Personal: Single
Living: Alone
Family History
Family History: Not pertinent
Allergies / Home Medications
Allergies reflects when Allergies were last updated in [facility].
Home Medications with original date entered in [facility]
Allergy/Medication List:
Allergies
Allergy/AdvReac Type Severity Reaction Status Date / Time
milk Allergy Unknown Verified 05/24/25 18:10
Home Medications
therapeutic multivitamin 1 tab PO DAILY Supplement 02/26/12
metformin 500 mg tablet 500 mg PO BID@0800,1700 #60 tabs 11/04/24
insulin lispro protamine-lispro 100 unit/mL (75-25) subcutaneous pen 20 unit SC BID 05/24/25
lactase 3,000 unit tablet (Lactaid) 3,000 unit PO AC 05/24/25
loperamide 2 mg tablet 1 mg PO BID 05/24/25
Review of Systems
-
History Source: Patient and Family (Son at bedside)
A 12 point ROS was completed and negative except as noted: Yes
Constitutional: Denies Fever or Chills
EENT: Denies Tearing or Runny Nose
Respiratory: Denies Cough or Trouble Breathing
Cardiac: Denies Chest Pain, Diaphoresis, Palpitations or Syncope
Abdomen/GI: Denies Abdominal Pain, Nausea, Vomiting, Diarrhea, Constipated, Bloody Stools or Black Stools
: Denies Dysuria, Frequency, Flank Pain, Incontinence, Difficulty Voiding or Urgency
Musculoskeletal: Denies Joint Pain or Edema
Skin: Denies Itching or Rash
Neurological: Reports Dizzy; Denies Headache or Weakness
Endocrine: Reports No Symptoms
Hematologic/Lymphatic: Reports No Symptoms
Psych: Reports Calm
Physical Exam
Vital Signs
Vital Signs
Temp Pulse Resp BP Pulse Ox
98.2 F 78 14 115/73 97
05/24/25 11:24 05/24/25 17:30 05/24/25 17:30 05/24/25 15:00 05/24/25 17:30
Physical Exam
General: Comfortable and Conversant; No Pain, Fever or Chills
HEENT: NormoCephalic, Anicteric, Moist mucous membranes, Atraumatic, PERRLA, [place] Conjunctivae and No Ptosis
Respiratory: Clear; No Wheezes, Rales or Rhonchi
Cardiac: S1/S2 and Regular Rhythm; No Murmur, Rub, Gallop or Peripheral Edema
GI: Soft, Non Tender, Non Distended, Normal Bowel Sounds and No Hepatosplenomegaly
Rectal: Deferred by Provider
Musculoskeletal: No Clubbing, No Cyanosis and No Edema
Skin: Warm and Dry; No Rash
Neuro: AO x 3, No Motor Deficits, Nonfocal/grossly intact, Cranial Nerves Intact and No Sensory Deficits; No Facial Droop, Tremors or Sedated
Psych: Calm
Laboratory Results
-
05/24/25 14:26
05/24/25 14:
Laboratory Results
Total Bilirubin 0.5 mg/dl (0.2-1.3) 05/24/25 14:26
AST 21 U/L (17-59) 05/24/25 14:
ALT 16 U/L (0-50) 05/24/25 14:26
Alkaline Phosphatase 115 U/L (38-126) 05/24/25 14:26
Data Reviewed
-
CT Scan: Report Reviewed by me
Lab Data: Labs Reviewed by me
Impression/Plan
-
Impression/plan:
OBs telemetry
#Orthostatic hypotension with falls likely noncompliance with midodrine Versus volume depletion
#History orthostatic hypotension
BP 93/83> 138/93 post 1 L IV NSS
Patient has been noncompliant with midodrine since December as he felt it did not work
- Continue
- Follow orthostatic vitals
- Fall precautions
- Patient reports had MRI as outpatient that was negative
- Recommended resuming midodrine [address] mg [address] head: No acute intracranial abnormality.
Prominence of the supraclinoid portion of the right internal carotid artery when compared to the left. This may be due to tortuosity and diffuse ectasia. However, aneurysm not completely excluded.
Further evaluation with MR angiography is advised.( the pt reported he had a follow up with Neurology )
#DM 2 history uncontrolled
#History of DKA September 2024
HgbA1c 14.03 October 2024
Blood sugar 196
- Accu-Cheks with SSI, check HgbA1c
Patient takes lispro protamine 75/25 20 units SQ twice daily son draws up for him
-Will give 10 units subcu twice daily equivalent 7030 while inpatient
-Hold metformin
#Diabetic neuropathy to hands and feet
Patient uses marijuana Gummies and hookah as needed
#Ambulatory dysfunction secondary to neuropathy
-Uses combination of cane, rollator, walker
#Lactose intolerant
-Continue Lactaid with meals
#Class I obesity�BMI 30
Affects all aspects of care
DVT prophylaxis
Subcu Lovenox
DNR per patient with son at bedside
[2025-05-24 21:25] LABS: Glucose - Point of Care 185 mg/dl (70-99)
--- NOTE | 2025-05-24 22:00 | PTCARENOTE ---
pt is aaox3, pt pupils 2mm brisk, reactive. pt reports feeling lightheaded/dizzy w/ movement, and having multiple falls at home. pt is placed on bed alarm. pt has chronic diarrhea - takes home med. pt here w/ +orthos laying =153/102, sitting=
121/93, and standing= 93/67, falls, and volume depletion. he is refusing his ivf, says he will drink alot instead. informed pt of why he was on IVF, but he continued to refused. pt last use medical marijuana the other day. informed INFRASTRUCTURE TECH Melania
Leigh.
pt w/ oriented to room w/ call perez in reach.
[2025-05-24] MEDS: NOVOLOG MIX 70/30 FLEXPEN 10 UNITS SC (22:20)
[2025-05-24] MEDS: NON-FORMULARY ITEM 1 UNIT PO (22:48)
[2025-05-25] VITALS (9 sets, daily range): BP systolic 91–145; BP diastolic 61–117; PULSE 80–106
[2025-05-25 08:08] LABS: Glucose - Point of Care 195 mg/dl (70-99)
[2025-05-25 08:19] LABS: Hematocrit 42.1 % (39.0-52.0); Hemoglobin 14.7 g/dL (13.0-18.0); Mean Corp Hgb Conc. 34.9 g/dL (33.0-37.0); Mean Corpuscular Volume 89.0 fL (80.0-94.0); Nucleated Red Blood Cells % 0 % (-); Platelet Count 240 10^3/uL (130-400); Red Cell Dist. Width 13.0 % (11.5-14.5)
[2025-05-25] MEDS: NOVOLOG MIX 70/30 FLEXPEN 10 UNITS SC ×2 (08:20→17:14)
[2025-05-25] MEDS: NOVOLOG FLEXPEN-LOW RESISTANCE 1 UNITS SC (08:22)
[2025-05-25] MEDS: THERAGRAN 1 TABLET PO (08:28)
[2025-05-25] MEDS: LACTAID PO ×3 (08:31→17:13)
[2025-05-25] MEDS: NON-FORMULARY ITEM PO (08:33)
[2025-05-25 09:09] LABS: ALT (SGPT) 15 U/L (0-50); AST (SGOT) 20 U/L (17-59); Albumin 3.9 g/dl (3.5-5.0); Alkaline Phosphatase 81 U/L (38-126); Blood Urea Nitrogen 16 mg/dl (9-20); Calcium 9.3 mg/dl (8.4-10.2); Carbon Dioxide 27 mmol/L (22-30); Chloride 101 mmol/L (98-107); Estimated Creatinine Clearance > 125 ml/min; Glucose 215 mg/dl (70-99); Magnesium 1.7 mg/dl (1.6-2.3); Potassium 5.0 mmol/L (3.5-5.1); Sodium 135 mmol/L (135-145); Total Protein 6.9 g/dl (6.3-8.2); eGFR > 60.00
[2025-05-25 10:33] LABS: Glycohemoglobin (HgbA1c) 10.6 % (4.0-5.6)
[2025-05-25 11:29] LABS: Glucose - Point of Care 225 mg/dl (70-99)
[2025-05-25] MEDS: NOVOLOG FLEXPEN-LOW RESISTANCE 2 UNITS SC ×2 (13:07→17:13)
--- NOTE | 2025-05-25 13:33 | CM ---
Patient seen at bedside with physician in [facility]. Patient stated that they have 13 steps to home and it is one story once you are in the home. Patient is not driving and he has a walker and wheelchair. Patient PCP is Dr. Alvarado, he uses the
[facility] in [place]. Patient expressing concerns about losing his job and about his current medical needs. Patient is currently OBS CM will provide patient with form. Per physician awaiting neuro consult. CM will continue to follow for discharge
planning needs.
Plan; home with VN pending PT/OT assessment
--- NOTE | 2025-05-25 13:33 | W.PN.HOSP.TC ---
Today's Communication/Plan
-
consult neuro
consider brain MRI
consult DM DIESEL INSPECTOR
cont midodrine
may need teds stockings and abdominal binder
Assessment / Plan
Assessment / Plan
pt is a 59 year old male
Orthostatic hypotension with falls likely noncompliance with midodrine (felt it didn't work) vs. volume depletion from chronic diarrhea--other possibilities include seizures or neurologic issue, Parkinson's etc.--cont with midodrine, PT/OT--consult
neuro--consider EEG--consider MRI brain given concern on CT head
Type 2 DM (Hx DKA in 09/2024) --pt states these above symptoms are not in relation to low blood sugar--says his sugars run 120-140s--HGB A1C 10.6--accuchecks with SSI--cont current insulin regimen--consult DM DIESEL INSPECTOR--metformin on hold
chronic diarrhea--? from type 2 DM itself, from metformin, from pancreatic insufficiency--will need outpt GI f/u
Diabetic neuropathy to hands and feet--Patient uses marijuana Gummies and hookah as needed
Ambulatory dysfunction secondary to neuropathy--Uses combination of cane, rollator, walker
Lactose intolerant--Continue Lactaid with meals
Class I obesity�BMI 30--Affects all aspects of care
DVT proph--Subcu Lovenox
code status--DNR
Anticipated Discharge: 24 - 48 hours
Subjective/Interval History
-
Date of Service: May 25, 2025
Patient states he has chronic diarrhea, instability with gait and 'falls' on a daily basis but is most concerned when he falls 'down the steps and landed on concrete', he states that he shakes and sometimes freezes, and is forgetful and was sent by
his primary care physician for further workup.
Objective Data
-
Labs:
Laboratory Results
05/25/25
08:01
WBC 7.0
Hgb 14.7
Hct 42.1
Plt Count 240
Sodium 135
Potassium 5.0
Chloride 101
Carbon Dioxide 27
BUN 16
Creatinine 0.7
Glucose 215 H
Calcium 9.3
Total Bilirubin 0.7
AST 20
ALT 15
Alkaline Phosphatase 81
Vital Signs:
max temp for 24 hours
05/24/25
21:39
Temp 99.4 F
Vital Signs
Temp Pulse Resp BP Pulse Ox
98.5 F 88 18 107/78 100
05/25/25 11:00 05/25/25 11:00 05/25/25 11:00 05/25/25 11:00 05/25/25 11:00
I&O
05/24/25 05/25/25 05/26/25
06:59 06:59 06:59
Intake Total 1360 / 1360
Balance 1360 / 1360
Review of Systems
-
All other systems: Reviewed and negative
Abdomen/GI: Reports Diarrhea (chronic with weight loss)
Neuro: Reports Other (syncope, falls, shakes, forgetfulness)
Physical Exam
-
General: Well Developed, Well Nourished and No Apparent Distress
HEENT: Normocephalic and Atraumatic; Negative Oxygen
Respiratory: Clear to Auscultation; Negative Wheezes, Rales, Rhonchi or Crackles
Cardiac: Regular Rhythm and S1/S2; Negative Murmur
GI: Soft, Nontender, Nondistended and Normal Bowel Sounds
Musculoskeletal: No Clubbing, No Cyanosis and No Edema
Skin: Warm
Neuro: Awake
Psych: Calm
--- NOTE | 2025-05-25 16:14 | W.PN.UPDATE ---
Update Note
Progress Note Update
Due to the presence of ongoing orthostatic hypotension, he meets criteria for inpatient status.
[2025-05-25 17:03] LABS: Glucose - Point of Care 234 mg/dl (70-99)
[2025-05-25] MEDS: LOVENOX 40 MG SC (17:20)
--- NOTE | 2025-05-25 18:32 | CON.NEURO ---
Neuro Assessment/Plan
Assessment
weakness, diabetic peripheral neuropathy (DPN) he has much more weakness and atrophy than I would expect for this duration of diabetes. Will ask Dr Sosa for EMG to eval for CIDP
Diabetic autonomic neuropathy (JEANNIE) agree midodrine. unfortunately droxidopa is not typically covered. his syncope events several minutes after standing up which can be typical of neurogenic orthostatic hypotension however I ? carotid
stenosis/hypoperfusion will check carotid u/s and ? sz as they are preceded by olfactory aura, will ask tech to stand him up during the study. management is entirely symptomatic consider glycopyrrolate for sweating
Dialeptic seizures (staring spell) will check eeg and talk to him about rx tomorrow. 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
Recall problem for simple words but it comes back to him, so not a dementia symptom may again be a sz symptom
Diabetic cheiropathy (hands lock up and probably the shaking since it is associated in time) continue wax therapy
treatment induced neuropathy of diabetes (TIND) reassured that this gets better in months with good glycemic control.
Head CT finding dilated vessel vs aneurysm, if it is an aneurysm PHASES score of 0, bleed risk 0.4% in 5 years no further imaging leave it alone.
Plan
EEG
possible EMG
Consultation
Order
Date of Consultation: 05/25/25
Requesting Provider: Jennifer
Reason for Consult: orthostatic, hands lock, shakes, forgetfulness
Subjective/Objective
Subjective Data
Date of Service: May 25, 2025
from h&p:
59-year-old male with reported multiple falls. He remembers falling as most recent as yesterday. He reports being unconscious and his son woke him up. He did have follow-up with neurology prior for falls had MRI of his brain which was reportedly
negative. He does have history of orthostatic hypotension however he does not believe that the midodrine was helping him. He was taking 5 mg twice daily as needed but stopped taking it in December. He reports he is combination of cane, rollator,
wheelchair when he feels dizzy with walking. He has severe neuropathy to bilateral hands to the point where he keeps them bent however they are not contracted I encouraged patient he needs to open his hands or they will become contracted. He has
severe neuropathy in bilateral feet
He has a medical history orthostatic hypotension DM2 with history of DKA October 2024, class I obesity, neuropathy hands and feet
Autonomic: orthostatic hypotension, can be when he stands up or a few minutes later he gets lightheaded, olfactory aura marigolds/baked bread, LOC. cold chest but warm legs. inappropriate temperature/sweat regulation.
at times he has staring spells, son notices but he doesnt notice it happening. sometimes forgets simple words like dog, ball, or his dtr's name but it comes back to him; generally his memory is good and he can recite poetry.
at times, his hands lock up and then shake. better with running hands under warm water or warm wax. 1-2
he recently lost 150 lbs and is recently getting his sugars under control Ha1c 14.4 in Sep 2024
Objective Data
Vital Signs
Temp Pulse Resp BP Pulse Ox
36.8 C 80 18 142/93 100
05/25/25 15:00 05/25/25 15:00 05/25/25 15:00 05/25/25 15:00 05/25/25 15:00
Lab Results
05/25/25 08:01
05/25/25 08:01
Sodium 135 mmol/L (135-145) 05/25/25 08:01
Potassium 5.0 mmol/L (3.5-5.1) 05/25/25 08:01
BUN 16 mg/dl (9-20) 05/25/25 08:01
Glucose 215 mg/dl (70-99) H 05/25/25 08:01
Calcium 9.3 mg/dl (8.4-10.2) 05/25/25 08:01
Patient Allergies
milk Allergy (Verified 05/24/25 21:13)
DIARRHEA
Physical Exam
-
AAOx3 speech clear, language intact
VFF, EOMI, face symmetric
strength diffusely 4/5, diffuse muscle atrophy, cogwheel/lead pipe rigidity
Severe vibratory loss b/l LE worse on the right, and moderate vibratory loss hands
areflexic
Medications
-
Active Medications
Generic Name Dose Route Start Last Admin
Trade Name Freq PRN Reason Stop Dose Admin
Acetaminophen 650 mg 05/24/25 21:12
Acetaminophen 325 Mg Tablet PO 06/21/25 21:11
Q4HPRN PRN
mild pain/PRESLEY/temp> 100.4F
Dextrose 12.5 grams 05/24/25 21:12
Dextrose 50% (0.5 Grams/Ml) 50 Ml Syringe IV 06/21/25 21:11
[id number] PRN
hypoglycemia
Protocol
Enoxaparin Sodium 40 mg 05/25/25 18:00 05/25/25 17:20
Enoxaparin Sodium 40 Mg/0.4 Ml Syringe SC 06/22/25 17:59 40 mg
QPM PRASHANTH Administration
Glucagon 1 mg 05/24/25 21:12
Glucagon 1 Mg Vial IM 06/21/25 21:11
PRN PRN
hypoglycemia
Protocol
Insulin Aspart 0 units 05/25/25 07:30 05/25/25 17:13
Insulin Aspart Low Resistance 300 Units/3 Ml Pen.Injctr SC 06/22/25 07:29 2 units
AC PRASHANTH Administration
Protocol
Insulin Aspart Prota 70%/Aspart 30% 10 units 05/24/25 21:12 05/25/25 17:14
Novolog Mix 70/30 (100 Units/Ml) 3 Ml Flexpen SC 06/21/25 21:11 10 units
BID@0800,1700 PRSAHANTH Administration
Lactase 1 capsule 05/25/25 07:30 05/25/25 17:13
Lactase Enzyme Capsule PO 06/22/25 07:29 Not Given
AC PRASHANTH
Midodrine 5 mg 05/24/25 22:00 05/25/25 17:20
Midodrine 5 Mg Tablet PO 06/21/25 21:59 5 mg
BID AT 0800,1700 PRASHANTH Administration
Multivitamins Therapeutic 1 tablet 05/25/25 08:00 05/25/25 08:28
Multivitamin Tablet PO 06/22/25 07:59 1 tablet
DAILY PRASHANTH Administration
Loperamide And 0 unit 05/24/25 23:00 05/25/25 08:33
Simethicone 2 Mg/125 PO 06/21/25 22:59 Not Given
Mg One Half Tablet BID PRASHANTH
Po Bid
Sodium Chloride 0 flush 05/24/25 22:00
Sodium Chloride 0.9% (Flush) Syringe IV 06/21/25 21:59
PER PROTOCOL PRASHANTH
Home Medications
�Medication �Instructions �Recorded
therapeutic multivitamin 1 tab PO DAILY Supplement 02/26/12
metformin 500 mg tablet 500 mg PO BID@0800,1700 #60 tabs 11/04/24
insulin lispro protamine-lispro 20 unit SC BID Diabetes 05/24/25
100 unit/mL (75-25) subcutaneous
pen
lactase 3,000 unit tablet (Lactaid) 3,000 unit PO AC Supplement 05/24/25
loperamide 2 mg tablet 1 mg PO BID DIARRHEA 05/24/25
[2025-05-25] MEDS: NON-FORMULARY ITEM 1 UNIT PO (20:58)
[2025-05-26 07:00] VITALS: BP 109/70; BP 117/68; BP 91/56; PULSE 108; PULSE 78; PULSE 95
[2025-05-26 07:49] LABS: Glucose - Point of Care 225 mg/dl (70-99)
[2025-05-26] MEDS: NON-FORMULARY ITEM 1 UNIT PO ×2 (08:12→19:55)
[2025-05-26] MEDS: THERAGRAN 1 TABLET PO (08:13)
[2025-05-26] MEDS: LACTAID 1 CAPSULE PO ×3 (08:13→17:03)
[2025-05-26] MEDS: NOVOLOG MIX 70/30 FLEXPEN 15 UNITS SC ×2 (08:14→17:04)
[2025-05-26] MEDS: NOVOLOG FLEXPEN-LOW RESISTANCE 2 UNITS SC ×2 (08:14→12:07)
[2025-05-26 09:20] LABS: Hematocrit 44.4 % (39.0-52.0); Hemoglobin 15.3 g/dL (13.0-18.0); Mean Corp Hgb Conc. 34.5 g/dL (33.0-37.0); Mean Corpuscular Volume 90.1 fL (80.0-94.0); Platelet Count 252 10^3/uL (130-400); Red Cell Dist. Width 13.4 % (11.5-14.5)
[2025-05-26 10:45] LABS: Ferritin 584.0 ng/ml (17.9-464.0)
[2025-05-26 11:00] VITALS: BP 134/86
[2025-05-26 11:10] LABS: ALT (SGPT) 15 U/L (0-50); AST (SGOT) 19 U/L (17-59); Albumin 4.1 g/dl (3.5-5.0); Alkaline Phosphatase 85 U/L (38-126); Blood Urea Nitrogen 17 mg/dl (9-20); Calcium 9.5 mg/dl (8.4-10.2); Carbon Dioxide 25 mmol/L (22-30); Chloride 103 mmol/L (98-107); Estimated Creatinine Clearance > 125 ml/min; Glucose 259 mg/dl (70-99); Magnesium 1.9 mg/dl (1.6-2.3); Potassium 4.6 mmol/L (3.5-5.1); Sodium 135 mmol/L (135-145); Total Protein 7.1 g/dl (6.3-8.2); eGFR > 60.00
[2025-05-26 11:53] LABS: Glucose - Point of Care 219 mg/dl (70-99)
--- NOTE | 2025-05-26 12:13 | PN.DE.MGMTRT ---
Insulin Management
- -
05/26/2025 Diabetes Management Consult
Patient admitted 05/24 for multiple falls - orthostatic hypotension. PMH Diabetes, chronic diarrhea, orthostatic hypotension, obesity, neuropathy, ambulatory dysfunction. Prior to admission was taking metformin 500 mg BID with 70/30 novolog 20
units BID. A1C on admission 10.6, improved from 10/28 admission 14.4%. Cr .7, eGFR > 60. Patient known to me from previous admission.
Patient is off the unit for testing, information obtained from nurse and chart.
Patient received 10 units 70/30 insulin BID yesterday, glucose range 195 to 234, no HS glucose.
Fasting glucose today 225. Will increase 70/30 to 15 units BID, first dose this AM with low corrective insulin.
Discussed with nurse.
Will follow
Diabetes History
- -
Type of Diabetes: 2 requiring insulin
Pre-Admission Diabetes Regimen
05/26/25
08:14
Creatinine 0.7
Lab Results
Hemoglobin A1c 10.6 % (4.0-5.6) H 05/25/25 08:01
Insulin Pump Settings
IP Diabetes Regimen
05/25/25 05/26/25 05/26/25
17:01 07:48 08:14
Glucose 259 H
POC Glucose 234 H 225 H
05/26/25
11:52
Glucose
POC Glucose 219 H
Meal type: Breakfast
Meal type: Lunch
Amount consumed: 100%
Patient Education
--- NOTE | 2025-05-26 13:43 | W.PN.HOSP.TC ---
Today's Communication/Plan
-
await EEG
still orthostatic
cont midodrine
Assessment / Plan
Assessment / Plan
pt is a 59 year old male
Orthostatic hypotension with falls likely noncompliance with midodrine (felt it didn't work) vs. volume depletion from chronic diarrhea--other possibilities include seizures or neurologic issue, Parkinson's etc.--cont with midodrine, PT/OT--apprec
neuro--apprec EEG--no need for further MRI brain
Type 2 DM (Hx DKA in 09/2024) --pt states these above symptoms are not in relation to low blood sugar--says his sugars run 120-140s--HGB A1C 10.6--accuchecks with SSI--cont current insulin regimen--apprec DM WELDER SHIELDED METAL ARC--metformin on hold
chronic diarrhea--? from type 2 DM itself, from metformin, from pancreatic insufficiency--will need outpt GI f/u--cont anti-diarrheal meds
Diabetic neuropathy to hands and feet--Patient uses marijuana Gummies and hookah as needed
Ambulatory dysfunction secondary to neuropathy--Uses combination of cane, rollator, walker
Lactose intolerant--Continue Lactaid with meals
Class I obesity�BMI 30--Affects all aspects of care
DVT proph--Subcu Lovenox
code status--DNR
Anticipated Discharge: Within 24 hours
Subjective/Interval History
-
Date of Service: May 26, 2025
pt does not want to use the bed alarm
Objective Data
-
Labs:
Laboratory Results
05/26/25
08:14
WBC 5.7
Hgb 15.3
Hct 44.4
Plt Count 252
Sodium 135
Potassium 4.6
Chloride 103
Carbon Dioxide 25
BUN 17
Creatinine 0.7
Glucose 259 H
Calcium 9.5
Total Bilirubin 0.8
AST 19
ALT 15
Alkaline Phosphatase 85
Vital Signs:
max temp for 24 hours
05/25/25
19:00
Temp 98.6 F
Vital Signs
Temp Pulse Resp BP Pulse Ox
98.7 F 81 18 134/86 100
05/26/25 11:00 05/26/25 11:00 05/26/25 11:00 05/26/25 11:00 05/26/25 11:00
I&O
05/25/25 05/26/25 05/27/25
06:59 06:59 06:59
Intake Total 1360 / 1360 2880 / 2880
Balance 1360 / 1360 2880 / 2880
Review of Systems
-
All other systems: Reviewed and negative
Physical Exam
-
General: Well Developed, Well Nourished and No Apparent Distress
HEENT: Normocephalic and Atraumatic; Negative Oxygen
Respiratory: Clear to Auscultation; Negative Wheezes, Rales, Rhonchi or Crackles
Cardiac: Regular Rhythm and S1/S2; Negative Murmur
GI: Soft, Nontender, Nondistended and Normal Bowel Sounds
Musculoskeletal: No Clubbing, No Cyanosis and No Edema
Neuro: Awake and Alert
Psych: Calm
--- NOTE | 2025-05-26 14:22 | EEG.RPT ---
Electroencephalogram Report
Recording
Date of EE05/26/25
Type of EEG: Routine
Length of EEG recordin mins
Patient Status: Inpatient
Recording Conditions: Awake and Asleep
Hyperventilation Performed: Yes
Photic Stimulation Performed: Yes
Report
Clinical History:�59 year old man with staring spells. when he stands up, after a few minutes he smells baking bread and marigolds and then syncope.
Introduction: A routine bedside EEG was done using [employer] 10-20 electrode placement protocol.
Background: In the most alert state, the PDR is 9-10 Hz in frequency with normal amplitude. There is spontaneous variability and reactivity.�
Sleep: No sleep is seen.�
Focal/rhythmic/epileptiform: Upon standing up, there is a burst of rhythmic slowing lasting ~5 seconds. Patient attempted to provoke the spell by bending over and standing quickly and did get lightheaded but couldn't provoke the spell. There were no
focal or epileptiform discharges. No clinical or electrographic seizures occurred during this recording.
Photic stimulation: resulted in normal driving response. There was no photo myogenic or photoparoxysmal response.�
Impression: burst of rhythmic slowing upon standing, otherwise normal background.
--- NOTE | 2025-05-26 14:24 | CM ---
Patient seen at bedside with physician on . Patient plan is for discharge home with son. Patient for further testing per physician and is currently INP status. CM will continue to follow for discharge planning needs.
Plan; home with VN vs home with no needs.
[2025-05-26 16:04] VITALS: BP 116/80
[2025-05-26 16:46] LABS: Glucose - Point of Care 191 mg/dl (70-99)
[2025-05-26] MEDS: LOVENOX 40 MG SC (17:03)
[2025-05-26] MEDS: NOVOLOG FLEXPEN-LOW RESISTANCE 1 UNITS SC (17:04)
--- NOTE | 2025-05-26 18:20 | W.PN.NEURO.1 ---
Today's Communication / Plan
-
Normal EEG and carotids
Keppra 500 BID
outpatient neuro T[facility]ENER f/u
Neuro Assessment/Plan
Assessment
weakness, diabetic peripheral neuropathy (DPN) he has much more weakness and atrophy than I would expect for this duration of diabetes. Could not get inpatient EMG; recommend outpatient EMG
Diabetic autonomic neuropathy (JEANNIE) - causing NOH, abnormal sweating, and abnormal temperature regulation/sensation; he feels cold but when i touch he is warm. management is entirely symptomatic consider glycopyrrolate for sweating
neurogenic orthostatic hypotension (NOH) due to JEANNIE, agree midodrine. unfortunately droxidopa is not typically covered with JEANNIE. his syncope events several minutes after standing up which can be typical of neurogenic orthostatic hypotension. no
carotid stenosis.
Dialeptic seizures (staring spell) . 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
so i believe that this is a sz symptom and not a dementia symptom. EEG showing burst of slowing ~ 5 seconds right when he stood up. he felt lightheaded. Will Rx Keppra 500 BID.
Diabetic cheiropathy (hands lock up and probably the shaking since it is associated in time) continue wax therapy
treatment induced neuropathy of diabetes (TIND) reassured that this gets better in months with good glycemic control. It needs to be super tight, and when that happens he will likely feel worse, but I promised him that he will get over the hump and
then feel better. And that transient hyperglycemia even with good HA1c will make this process take longer.
Head CT finding dilated vessel vs aneurysm 6.2 mm, if it is an aneurysm the PHASES score is 0 ([place], no HTN, age<70, size <7mm, no SAH, internal carotid artery) bleed risk 0.4% in 5 years no further imaging leave it alone.
agree dc home tomorrow fu with TIGHTENER in our office
Subjective/Objective
Subjective Data
Date of Service: May 26, 2025
no new symptoms
Objective Data
Vital Signs
Temp Pulse Resp BP Pulse Ox
36.6 C 80 16 116/80 98
05/26/25 16:04 05/26/25 16:04 05/26/25 16:04 05/26/25 16:04 05/26/25 16:04
Lab Results
05/26/25 08:14
05/26/25 08:14
Sodium 135 mmol/L (135-145) 05/26/25 08:14
Potassium 4.6 mmol/L (3.5-5.1) 05/26/25 08:14
BUN 17 mg/dl (9-20) 05/26/25 08:14
Glucose 259 mg/dl (70-99) H 05/26/25 08:14
Calcium 9.5 mg/dl (8.4-10.2) 05/26/25 08:14
Patient Allergies
milk Allergy (Verified 05/24/25 21:13)
DIARRHEA
Physical Exam
-
AAOx3 speech clear, language intact
VFF, EOMI, face symmetric
strength diffusely 4/5, diffuse muscle atrophy, cogwheel/lead pipe rigidity
Severe vibratory loss b/l LE worse on the right, and moderate vibratory loss hands
areflexic
[2025-05-26 19:00] VITALS: BP 122/79
[2025-05-26] MEDS: KEPPRA 500 MG PO (19:54)
[2025-05-26 21:01] LABS: Glucose - Point of Care 238 mg/dl (70-99)
[2025-05-26 23:19] VITALS: PULSE 79
[2025-05-27 03:00] VITALS: BP 117/82
[2025-05-27 07:54] LABS: Glucose - Point of Care 187 mg/dl (70-99)
[2025-05-27 08:17] VITALS: BP 134/85; BP 80/50; BP 92/59; PULSE 110; PULSE 82; PULSE 95
[2025-05-27] MEDS: NOVOLOG FLEXPEN-LOW RESISTANCE 1 UNITS SC (09:04)
[2025-05-27] MEDS: NOVOLOG MIX 70/30 FLEXPEN 18 UNITS SC (09:05)
[2025-05-27] MEDS: THERAGRAN 1 TABLET PO (09:09)
[2025-05-27] MEDS: KEPPRA 500 MG PO (09:09)
[2025-05-27] MEDS: LACTAID PO ×2 (09:14→13:22)
[2025-05-27] MEDS: NON-FORMULARY ITEM PO (09:14)
--- NOTE | 2025-05-27 11:07 | PN.DE.MGMTRT ---
Insulin Management
- -
05/27/2025 Diabetes Management Consult
Patient admitted 05/24 for multiple falls - orthostatic hypotension. PMH Diabetes, chronic diarrhea, orthostatic hypotension, obesity, neuropathy, ambulatory dysfunction. Prior to admission was taking metformin 500 mg BID with 70/30 novolog 20
units BID. A1C on admission 10.6, improved from 10/28 admission 14.4%. Cr .7, eGFR > 60. Patient known to me from previous admission.
Patient is awake alert and oriented able to discuss diabetes care. States he would like to get off insulin, as it is expensive. Discussed if cost is an issue Kennyjavedtab brand - Reli-On is more affordable. All questions answered regarding overnight
rise in blood sugar, insulin requirements.
Patient received 15 units 70/30 insulin BID yesterday, glucose range 191 to 238.
Fasting glucose today 187. Will increase 70/30 to 18 units BID, first dose this AM with low corrective insulin.
Discussed with nurse.
Will follow
Diabetes History
- -
Type of Diabetes: 2 requiring insulin
Pre-Admission Diabetes Regimen
05/26/25
08:14
Creatinine 0.7
Lab Results
Hemoglobin A1c 10.6 % (4.0-5.6) H 05/25/25 08:01
Insulin Pump Settings
IP Diabetes Regimen
05/26/25 05/26/25 05/26/25
08:14 11:52 16:45
Glucose 259 H
POC Glucose 219 H 191 H
05/26/25 05/27/25
21:00 07:52
Glucose
POC Glucose 238 H 187 H
Meal type: Lunch
Amount consumed: 100%
Patient Education
[2025-05-27 11:30] VITALS: BP 88/45; BP 96/64
--- NOTE | 2025-05-27 11:42 | W.PN.HOSP.TC ---
Today's Communication/Plan
-
d/c
Assessment / Plan
Assessment / Plan
pt is a 59 year old male
Orthostatic hypotension with falls likely noncompliance with midodrine (felt it didn't work) vs. volume depletion from chronic diarrhea--working diagnosis is NOW diabetic peripheral neuropathy, diabetic autonomic neuropathy causing orthostatic
hypotension, dialectic seizures, diabetic cheiropathy, and treatment-induced neuropathy of diabetes--cont with midodrine, PT/OT/VN--apprec neuro--EEG positive for seizures--no need for further MRI brain inpatient--suggest as outpt--need EMG as outpt
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
--need DM classes as outpt
chronic diarrhea--? from type 2 DM itself, from metformin, from pancreatic insufficiency--will need outpt GI f/u--cont anti-diarrheal meds
Diabetic neuropathy to hands and feet--Patient uses marijuana Gummies and hookah as needed--wax therapy
Ambulatory dysfunction secondary to neuropathy--Uses combination of cane, rollator, walker
Lactose intolerant--Continue Lactaid with meals
Class I obesity�BMI 30--Affects all aspects of care
DVT proph--Subcu Lovenox
code status--DNR
Anticipated Discharge: Today
Subjective/Interval History
-
Date of Service: May 27, 2025
pt ready for d/c--spoke at length with pt re: next steps
Objective Data
-
Vital Signs:
max temp for 24 hours
05/26/25
19:00
Temp 98.4 F
Vital Signs
Temp Pulse Resp BP Pulse Ox
98.2 F 87 18 117/82 99
05/27/25 08:17 05/27/25 03:00 05/27/25 08:17 05/27/25 03:00 05/27/25 08:17
I&O
05/26/25 05/27/25 05/28/25
06:59 06:59 06:59
Intake Total 2880 / 2880 2119
Balance 2880 / 2880 2119
Review of Systems
-
All other systems: Reviewed and negative
Physical Exam
-
General: Well Developed, Well Nourished and No Apparent Distress
HEENT: Normocephalic and Atraumatic
Respiratory: Clear to Auscultation; Negative Wheezes or Rhonchi
Cardiac: Regular Rhythm and S1/S2; Negative Murmur
GI: Soft, Nontender, Nondistended and Normal Bowel Sounds
Musculoskeletal: No Clubbing, No Cyanosis and No Edema
Neuro: Awake
[2025-05-27 11:45] VITALS: BP 124/79
--- NOTE | 2025-05-27 11:47 | CM ---
Patient seen at bedside on . Patient plan is for home today with [facility] to follow and follow up with dietary as an outpatient. CM will go home with son. CM will continue to follow for discharge planning needs.
Plan; home with [facility] to follow
[2025-05-27 12:01] LABS: Glucose - Point of Care 202 mg/dl (70-99)
--- NOTE | 2025-05-27 12:44 | VNURNOTE ---
Home Health Liaison met with patient at bedside to discuss [facility] nurse/therapy, visits, schedule and homebound status. Patient is agreeable and understands that visits at home will be 2-3 x per week to assess and teach medical management.
Patient is aware that [facility] will contact them for start of care in 1-2 days after discharge from . Provided contact number for [facility].
[facility] referral completed in [facility].
[2025-05-27] MEDS: NOVOLOG FLEXPEN-LOW RESISTANCE 2 UNITS SC (13:23)
--- NOTE | 2025-05-28 07:15 | W.DCSUMMARY ---
Discharge Summary
Discharge Data
Date of Admission: 05/25/25
Date of Discharge: 05/27/25
-
Pending Results: No
Hospital Course
Primary care physician : Edy Grimaldo
Principal Discharge diagnosis : Diabetic peripheral neuropathy/diabetic autonomic neuropathy causing orthostatic hypotension/dialeptic seizures/diabetic cheiropathy/treatment induced neuropathy of diabetes
Chronic Discharge diagnosis : Type 2 diabetes mellitus, chronic diarrhea, ambulatory dysfunction, lactose intolerant, class I obesity
Hospital Course : Patient was a 59-year-old male with reported multiple falls. He remembers falling on a daily basis and most recently on the day prior to admission. He stated that he was unconscious and his son woke him up. He apparently had
follow-up with a neurologist sometime prior and had a brain MRI which was reportedly negative. He has a history of orthostatic hypotension and stopped his midodrine because he did did not believe it was helping him. He stated that he uses a
combination of a cane, rollator, and wheelchair when he feels dizzy with walking. He also has severe neuropathy to his bilateral hands and feet. He keeps his hands bent and contracted but he does use warm wax therapy. Patient was admitted.
Problem #1: Diabetic peripheral neuropathy/diabetic autonomic neuropathy causing orthostatic hypotension/dialeptic seizures/diabetic cheiropathy/treatment induced neuropathy of diabetes. Upon my evaluation the following morning with the patient, he
was significantly orthostatic and had symptoms with that where he smelled Marigolds or baking bread. In addition to noncompliance with his midodrine and volume depletion from chronic diarrhea, seizure disorder or other neurologic issues based on
his symptoms were entertained. Patient was seen in consultation by neurology. He was restarted on higher dose of midodrine of 5 mg twice daily. CAT scan done in the emergency department showed no evidence of acute intracranial abnormality,
however, there was some abnormality to the right internal carotid artery when compared to the left. Aneurysm was not completely excluded. Neurology does not feel that patient needed further workup in this regard, however, we have recommended to
the patient to have a brain MRI at some time as an outpatient.
Neurology was consulted after my first evaluation with him. Given his suboptimal controlled type 2 diabetes, working diagnosis was diabetic peripheral neuropathy along with diabetic autonomic neuropathy which was causing the orthostatic
hypotension. 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 Patient had staring episodes with drooling. EEG was done which showed a burst of slowing approximately 5 seconds right when he stood up. He felt
lightheaded. These are consistent with seizures and patient was started on Keppra 500 mg twice daily. Midodrine was recommended by neurology as well. And he was continued on 5 mg twice daily. Because this is autonomic in nature, better glucose
control would help. He was given ALICJA stockings and abdominal binder and was instructed on changing positions very slowly and staying in that position before changing or getting up to walk. Unfortunately, we were unable to obtain an EMG/nerve
conduction study in-house. He was recommended to obtain this as an outpatient.
Neurology has spoken to the patient about all of these issues. Diabetic autonomic neuropathy can cause abnormal sweating, temperature control, and orthostatic hypotension. His hands lock up and shake. This is consistent with diabetic cheiropathy
and continued wax therapy is recommended. Treatment-induced neuropathy of diabetes will get better with good glycemic control. It will take months however and patient was told this information. Glucose control needs to be supertight and transient
hyperglycemia even with a good hemoglobin A1c will make the process take longer.
Problem #2: All other medical issues. These include Type 2 diabetes mellitus, chronic diarrhea, ambulatory dysfunction, lactose intolerant, class I obesity. These medical issues were stable during his hospitalization. Medications were continued
as able. In regards to his type 2 diabetes mellitus, patient was diagnosed with diabetes in September when he presented with DKA. Hemoglobin A1c at that time was 14. He was started on metformin and insulin. Upon recheck today his hemoglobin A1c
was 10. He has made improved strides but he is not at goal with hemoglobin A1c of less than 7. He was seen in consultation by the diabetic educators. He needs tighter blood glucose control. Metformin has been stopped due to chronic diarrhea and
insulin has been adjusted.
Patient is stable for discharge home at this time. If there are any questions regarding this dictation or his hospital stay, please do not hesitate to call. Our office number is [phone].
Time for discharge 40 minutes.
Important imaging findings :
CT SCAN HEAD IMPRESSION:
No evidence of acute intracranial abnormality. No evidence for acute intracranial hemorrhage.
Prominence of the supraclinoid portion of the right internal carotid artery when compared to the left. This may be due to tortuosity and diffuse ectasia. However, aneurysm not completely excluded. Further evaluation with MR angiography is advised.
Discharge Plan
-
Patient Disposition: Home with Home Care
Discharge Diagnosis/Procedures: Diabetic peripheral neuropathy, diabetic autonomic neuropathy causing orthostatic hypotension, dialeptic seizures, diabetic cheiropathy, treatment-induced neuropathy of diabetes
Condition: Good
Diet: Diabetic, Carb Controlled
Activity: With assistance
Additional Activity: Do not get up quickly. Must sit for a while, then stand for a while before moving.
Driving Restrictions: Not until seen by your Dr
Bathing Restrictions: None
Other Services: VN, PT and OT
Activity Restrictions/Additional Instructions:
Should have outpatient brain MRI. Please obtain prescription from your PCP
Should have outpatient nerve conduction/EMG studies. Please obtain prescription from your PCP
Should attend outpatient diabetic classes. Please obtain referral from your PCP if needed.
Referrals:
Ed Ramirez MD [Active, Neurology] - in two to three weeks
Edy Grimaldo DO [Family Provider, Family Practice] - in less than 1 week
Prescriptions:
New
levetiracetam 500 mg Tablet
500 mg PO BID Qty: 60 0RF
midodrine 5 mg Tablet
5 mg PO BID AT 0800,1700 Qty: 60 0RF
acetaminophen 325 mg Tablet
650 mg PO Q4HPRN PRN (Reason: mild pain/PRESLEY/temp> 100.4F) Qty: 0 0RF
insulin asp prt-insulin aspart 100 unit/mL (70-30) Insulin Pen
18 unit SC BID@0800,1700 Qty: 0 0RF
Continued
therapeutic multivitamin Tablet
1 tab PO DAILY
loperamide 2 mg Tablet
1 mg PO BID
lactase [Lactaid] 3,000 unit Tablet
3,000 unit PO AC
Discontinued
metformin 500 mg Tablet
500 mg PO BID@0800,1700 Qty: 60 0RF
insulin lispro protamin-lispro 100 unit/mL (75-25) Insulin Pen
20 unit SC BID
Discharge Orders:
Discharge Patient (As Directed); Ordered 05/27/25
Ordered By: Mounika Rodriguez
Discharge Date and Time
Discharge Date/Time: 05/27/25 14:16
Print Language: OMANI
== END 2025-05-27 14:16 | disposition home health service (06) | DRG 74 ==
LOC: 4 WEST ACU 18:13
PROVIDERS: Clinical Nurse Specialist Family Health; Physician Assistant; ADMITTING PHYSICIAN Hospitalist; ATTENDING PHYSICIAN Internal Medicine; CONSULT PHYSICIAN Psychiatry & Neurology Clinical Neurophysiology; EMERGENCY PHYSICIAN Emergency Medicine; FAMILY PHYSICIAN Family Medicine
PROC: 5A09357 Assistance with Respiratory Ventilation, Less than 24 Consecutive Hours, Continuous Positive Airway Pressure (ICD-10-PCS; 2025-05-24)
DX: E11.43 Type 2 diabetes mellitus with diabetic autonomic (poly)neuropathy (principal); E11.42 Type 2 diabetes mellitus with diabetic polyneuropathy; I95.1 Orthostatic hypotension; R53.1 Weakness; R29.6 Repeated falls; E86.1 Hypovolemia; E73.9 Lactose intolerance, unspecified; G40.909 Epilepsy, unspecified, not intractable, without status epilepticus; M62.50 Muscle wasting and atrophy, not elsewhere classified, unspecified site; K52.9 Noninfective gastroenteritis and colitis, unspecified; E66.811 Obesity, class 1; Z66 Do not resuscitate; Z79.84 Long term (current) use of oral hypoglycemic drugs; Z79.4 Long term (current) use of insulin; Z91.199 Patient's noncompliance with other medical treatment and regimen due to unspecified reason; Z98.1 Arthrodesis status; Z68.30 Body mass index [BMI] 30.0-30.9, adult
CPT/HCPCS: 70450; 80053; 82728; 82962; 83036; 83735; 84443; 85025; 85027; 87324; 87449; 93880; 94660; 95816; 96360; 97163; 97530; 99285